=== PATIENT | female | born 1980 | race Caucasian/White ===

== ENCOUNTER 2016-11-27 21:44 | Emergency (ER) | payer OTHER ==
--- NOTE | 2016-11-27 22:04 | ERPHSYRPT ---
- History of Present Illness Time Seen by Provider: 11/27/16 21:58 Source: patient Exam Limitations: no limitations Patient Subjective Stated Complaint: describes malaise-type pains with muscle spasms and heaviness - states migraines - states that she has trouble with pituitary swelling and had recent adjustment of migraine et fibromyalgia medications - states that she has her usual pain behind the nose and soft palate of the mouth - reports with some photophobia and nausea Triage Nursing Assessment: ambulatory to treatment area - limping gait - moves all extremities with equal rigidity. alert/oriented - flat affect. skin pwd - no rash/injury appreciated Physician History: pt is 36 year old female with hx chronic headaches and fibromyalgia and having exacerbation of usual symptoms similar to previous episodes, no trauma , no fever, no sinus symptoms, no blood thinners or dyscrasias, has seen neuro and had full w/u per pt. ; also vomiting ; abd is nontender; no abd pain. Timing/Duration: today Quality: throbbing Head Pain Location: frontal Severity of Pain-Max: moderate Severity of Pain-Current: moderate Recent Head Trauma: no recent headache/trauma, frequent headaches, chronic headaches Modifying Factors: Improves With: exposure to light, noise Associated Symptoms: nausea/vomiting, sensitive to light, other (muscle spasms as often occur with her fibro and same as usual episodes) Previous symptoms: same symptoms as today, recently seen, recently treated Allergies/Adverse Reactions: nut - unspecified Allergy (Severe, Verified 11/27/16 21:48) Swelling of Tongue and Lips hydromorphone HCl [From Dilaudid] Allergy (Verified 11/27/16 21:48) Shortness of Breath Latex, Natural Rubber Allergy (Verified 11/27/16 21:48) Penicillins Allergy (Verified 11/27/16 21:48) peanuts Allergy (Severe, Uncoded 11/27/16 21:48) Swelling of Tongue and Lips Tongue and throat swells and difficulty breathing Home Medications: Citalopram Hydrobromide [Citalopram HBr] 40 mg PO DAILY 01/08/16 [History] Diphenhydramine HCl 25 mg PO Q6HPRN PRN 01/08/16 [History] Pregabalin [Lyrica 100Mg] 100 mg PO TID 01/08/16 [History] Tizanidine HCl 2 mg PO TID 01/08/16 [History] Melatonin/Pyridoxine [Melatonin 5 mg Tablet] 1 each PO HS PRN 04/02/16 [History] Amitriptyline HCl 25 mg [Elavil 25 mg] 25 mg PO DAILY 11/27/16 [History] Divalproex Sodium [Divalproex Sodium ER] 1,000 mg PO DAILY 11/27/16 [History] Magnesium Oxide 400 mg [Mag-Ox 400] 400 mg PO DAILY 11/27/16 [History] Prednisone 20 mg [Deltasone 20 mg] 20 mg PO DAILY 11/27/16 [History] Rizatriptan Benzoate [Rizatriptan] 10 mg PO DAILY 11/27/16 [History] Hx Tetanus, Diphtheria Vaccination/Date Given: No Hx Influenza Vaccination/Date Given: No Hx Pneumococcal Vaccination/Date Given: No Immunizations Up to Date: Yes - Review of Systems Constitutional: No Fever, No Chills Eyes: No Symptoms Ears, Nose, & Throat: No Symptoms Respiratory: No Cough, No Dyspnea Cardiac: No Chest Pain, No Edema, No Syncope Abdominal/Gastrointestinal: Nausea, Vomiting, No Abdominal Pain, No Diarrhea Genitourinary Symptoms: No Dysuria Musculoskeletal: Other (muscle spasms as usual with her fibro), No Back Pain, No Neck Pain Skin: No Rash Neurological: Headache, No Dizziness, No Focal Weakness, No Sensory Changes Psychological: No Symptoms Endocrine: No Symptoms All Other Systems: Reviewed and Negative - Past Medical History Pertinent Past Medical History: Yes Neurological History: Migraines ENT History: No Pertinent History Cardiac History: Other Respiratory History: Asthma Endocrine Medical History: No Pertinent History Musculoskeletal History: Fibromyalgia GI Medical History: No Pertinent History History: No Pertinent History Psycho-Social History: No Pertinent History, Anxiety, Depression, Panic Disorder Female Reproductive Disorders: Abnormal Uterine Bleeding, Fibroids, Menstrual Problems Other Medical History: "possible heart attack after of child" - Past Surgical History Past Surgical History: Yes Neuro Surgical History: No Pertinent History Cardiac: No Pertinent History Respiratory: No Pertinent History Gastrointestinal: No Pertinent History Genitourinary: No Pertinent History Musculoskeletal: No Pertinent History Female Surgical History: Section, Tubal Ligation Other Surgical History: x 2 and tubal ligation. pt and family state difficult to awaken from general anesthesia - Social History Smoking Status: Current every day smoker How long have you smoked: 10 years Exposure to second hand smoke: No Drug Use: none Patient Lives Alone: No - Female History Hx Last Menstrual Period: hyst Hx Now: No - Nursing Vital Signs Nursing Vital Signs: Initial Vital Signs Temperature 98.2 F Temperature Source Oral Pulse Rate 68 Respiratory Rate 16 Blood Pressure [Right Arm] 120/76 Pain Intensity 8 - Physical Exam General Appearance: no apparent distress Eye Exam: PERRL/EOMI Ears, Nose, Throat Exam: normal ENT inspection, moist mucous membranes Neck Exam: normal inspection, supple, full range of motion, No meningismus Respiratory Exam: normal breath sounds, lungs clear Cardiovascular Exam: regular rate/rhythm, normal heart sounds Gastrointestinal/Abdominal Exam: soft, No tenderness, No distention Back Exam: normal inspection, normal range of motion Mental Status Exam: alert, 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, 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: normal speech, PERRL, No facial droop Coordination/Gait Exam: normal gait, normal cerebellar function Motor/Sensory Exam: no motor deficit, no sensory deficit, no pronator drift DTR Exam: bicep (R): 2+, bicep (L): 2+, tricep (R): 2+, tricep (L): 2+, knee (R) : 2+, knee (L): 2+, ankle (R): 2+, ankle (L): 2+ Skin Exam: normal color, warm, dry, No rash SpO2 Interpretation: normal SpO2: 100 Oxygen Delivery: Room Air - Course Nursing assessment & vital signs reviewed: Yes Ordered Tests: Active Orders 24 hr Category Date Time Status IV Insertion STAT Care 11/27/16 22:05 Active Pulse Oximetry (ED) STAT Care 11/27/16 22:05 Active Medication Summary Generic Name Dose Route Start Last Admin Trade Name Freq PRN Reason Stop Dose Admin Sodium Chloride 1,000 mls @ 999 mls/hr 11/27/16 23:31 11/27/16 23:36 Sodium Chloride 0.9% 1000 Ml IV 11/28/16 00:31 999 mls/hr .Q1H1M STA Administration Discontinued Medications Generic Name Dose Route Start Last Admin Trade Name Freq PRN Reason Stop Dose Admin Diphenhydramine HCl 25 mg 11/27/16 22:05 11/27/16 22:35 Benadryl 50 Mg/Ml IV 11/27/16 22:06 25 mg STAT ONE Administration Diphenhydramine HCl Confirm 11/27/16 22:18 Benadryl 50 Mg/Ml Administered 11/27/16 22:19 Dose 50 mg .ROUTE .STK-MED ONE Sodium Chloride 1,000 mls @ 999 mls/hr 11/27/16 22:05 11/27/16 22:31 Sodium Chloride 0.9% 1000 Ml IV 11/27/16 23:05 999 mls/hr .Q1H1M STA Administration Sodium Chloride Confirm 11/27/16 22:18 Sodium Chloride 0.9% 1000 Ml Administered 11/27/16 22:19 Dose 1,000 mls @ ud .ROUTE .STK-MED ONE Sodium Chloride Confirm 11/27/16 23:34 Sodium Chloride 0.9% 1000 Ml Administered 11/27/16 23:35 Dose 1,000 mls @ ud .ROUTE .STK-MED ONE Ketorolac Tromethamine 30 mg 11/27/16 22:05 11/27/16 22:35 Toradol 30 Mg Injection IV 11/27/16 22:06 30 mg STAT ONE Administration Ketorolac Tromethamine Confirm 11/27/16 22:18 Toradol 30 Mg Injection Administered 11/27/16 22:19 Dose 30 mg .ROUTE .STK-MED ONE Orphenadrine Citrate 60 mg 11/27/16 22:10 11/27/16 22:34 Norflex 60 Mg/2 Ml IM 11/27/16 22:11 60 mg STAT ONE Administration Orphenadrine Citrate Confirm 11/27/16 22:18 Norflex 60 Mg/2 Ml Administered 11/27/16 22:19 Dose 60 mg .ROUTE .STK-MED ONE Oxycodone/Acetaminophen 1 tab 11/27/16 23:30 11/27/16 23:36 Oxycodone-Acetaminophen 10-325 PO 11/27/16 23:31 1 tab STAT STA Administration Oxycodone/Acetaminophen Confirm 11/27/16 23:34 Oxycodone-Acetaminophen 10-325 Administered 11/27/16 23:35 Dose 1 tab .ROUTE .STK-MED ONE Promethazine HCl 50 mg 11/27/16 22:05 11/27/16 22:35 Phenergan 25 Mg Inj IM 11/27/16 22:06 50 mg STAT ONE Administration Promethazine HCl Confirm 11/27/16 22:17 Phenergan 25 Mg Inj Administered 11/27/16 22:18 Dose 25 mg .ROUTE .STK-MED ONE Promethazine HCl Confirm 11/27/16 22:20 Phenergan 25 Mg Inj Administered 11/27/16 22:21 Dose 25 mg .ROUTE .STK-MED ONE Tizanidine HCl 4 mg 11/27/16 22:10 11/27/16 22:38 Zanaflex 4 Mg PO 11/27/16 22:11 4 mg STAT ONE Administration - Progress Progress: improved, re-examined Air Movement: good Progress Note: 11/27/16 23:29 headache only some improved , has responded to percocet before , so will try this 11/28/16 00:12 headache improved after treatment pt aware of need to f/u PCP for elevated prolactin and that no tests performed due to ongoing workup and being incare for these conditions which are proceeding as their usual course , but that undetected problems could still be evolving; pt is comfortable for DC without further w/u in ER at this time and prefers that to further w/u in ER. Blood Culture(s) Obtained: No Antibiotics given: No Counseled pt/family regarding: diagnosis, need for follow-up - Departure Time of Disposition: 00:15 Departure Disposition: Home Clinical Impression: Chronic headache disorder, Prolactin increased, Fibromyalgia Condition: Good Critical Care Time: No Instructions: Headache Additional Instructions: followup with your DrTrish for elevated prolactin and to renew muscle relaxer and neurologist for headaches and to continue your workup and treatments return meantime if not improving or further concerns.
[2016-11-27] MEDS ORDERED: Phenergan 25 MG INJ IM ONE (22:05)
[2016-11-27] MEDS ORDERED: BENADRYL 50 MG/ML IV ONE (22:05)
[2016-11-27] MEDS ORDERED: Sodium Chloride 0.9% 1000 ML 1,000 ML IV STA ×2 (22:05→23:31)
[2016-11-27] MEDS ORDERED: TORAdol 30 mg Injection IV ONE (22:05)
[2016-11-27] MEDS ORDERED: Zanaflex 4 MG PO ONE (22:10)
[2016-11-27] MEDS ORDERED: Norflex 60 MG/2 ML IM ONE (22:10)
[2016-11-27] MEDS ORDERED: Phenergan 25 MG INJ ONE ×2 (22:17→22:20)
[2016-11-27] MEDS ORDERED: Sodium Chloride 0.9% 1000 ML 1,000 ML ONE ×2 (22:18→23:34)
[2016-11-27] MEDS ORDERED: TORAdol 30 mg Injection ONE (22:18)
[2016-11-27] MEDS ORDERED: Norflex 60 MG/2 ML ONE (22:18)
[2016-11-27] MEDS ORDERED: BENADRYL 50 MG/ML ONE (22:18)
[2016-11-27] MEDS ORDERED: OXYCODONE-ACETAMINOPHEN 10-325 PO STA (23:30)
[2016-11-27] MEDS ORDERED: OXYCODONE-ACETAMINOPHEN 10-325 ONE (23:34)
[2016-11-28] MEDS ORDERED: OXYCODONE-ACETAMINOPHEN 10-325 PO STA (00:19)
[2016-11-28] MEDS ORDERED: Zanaflex 4 MG PO ONE (00:20)
[2016-11-28] MEDS ORDERED: OXYCODONE-ACETAMINOPHEN 10-325 ONE (00:26)
[2016-11-28 00:49] VITALS: BP 115/63; PULSE 74; O2SAT 99
== END 2016-11-28 00:50 | disposition home or self-care (01) ==
LOC: ED 21:44
DX: R51 Headache (principal); E22.1 Hyperprolactinemia; M79.7 Fibromyalgia; H53.149 Visual discomfort, unspecified; R11.2 Nausea with vomiting, unspecified
CPT/HCPCS: 36000; 96360; 96361; 96372; 96374; 96375; 99284; J1200; J1885; J2360; J2550; A9270-GY

== ENCOUNTER 2016-12-31 17:16 | Emergency (ER) | payer OTHER ==
[2016-12-31 17:48] VITALS: O2SAT 100
--- NOTE | 2016-12-31 18:23 | ERPHSYRPT ---
- History of Present Illness Time Seen by Provider: 12/31/16 18:18 Historian: patient Exam Limitations: no limitations Patient Subjective Stated Complaint: pt states when she woke up this morning she noticed right lower abdominal pain. states pain has became worse throughout the day. Triage Nursing Assessment: pt pink, warm, dry. abdomen soft tender in right lower quad. pt afebrile. Physician History: The patient is a 36-year-old female complaining of increasing pain in her right lower quadrant that began this morning. She is nauseated but does not have any vomiting at this time. A bowel movement today did not help with the pain. She has a past medical history of a hysterectomy. She's experienced chills and fever today. Her past medical history is significant for uterine fibroid, fibromyalgia, chronic headaches, and a recent pituitary "problem". Yesterday she had a MRI of her head contrast. Timing/Duration: today Activities at Onset: none Quality: sharpness Abdominal Pain Onset Location: RLQ Pain Radiation: no radiation Severity of Pain-Max: severe Severity of Pain-Current: severe Modifying Factors: Improves With: nothing Associated Symptoms: denies symptoms Previous symptoms: no prior history Allergies/Adverse Reactions: nut - unspecified Allergy (Severe, Verified 12/31/16 17:48) Swelling of Tongue and Lips hydromorphone HCl [From Dilaudid] Allergy (Verified 12/31/16 17:48) Shortness of Breath Latex, Natural Rubber Allergy (Verified 12/31/16 17:48) Penicillins Allergy (Verified 12/31/16 17:48) peanuts Allergy (Severe, Uncoded 12/31/16 17:48) Swelling of Tongue and Lips Tongue and throat swells and difficulty breathing Home Medications: Amitriptyline HCl 25 mg [Elavil 25 mg] 50 mg PO HS 12/31/16 [History] Cholecalciferol (Vitamin D3) [Vitamin D3] 1.2 mg PO WEEKLY 12/31/16 [History] Cyanocobalamin 100 Mcg [Vitamin B-12 100 Mcg] 100 mcg PO WEEKLY 12/31/16 [ History] Divalproex Sodium [Divalproex Sodium ER] 500 mg PO BID 12/31/16 [History] Hydrocortisone 10 mg PO BID 12/31/16 [History] Magnesium Oxide 400 mg [Mag-Ox 400] 400 mg PO DAILY 12/31/16 [History] Hx Tetanus, Diphtheria Vaccination/Date Given: Yes (up to date) Hx Influenza Vaccination/Date Given: No Hx Pneumococcal Vaccination/Date Given: No Immunizations Up to Date: Yes - Review of Systems Constitutional: Fever, Chills Eyes: No Symptoms Ears, Nose, & Throat: No Symptoms Respiratory: No Cough, No Dyspnea Cardiac: No Chest Pain, No Edema, No Syncope Abdominal/Gastrointestinal: Abdominal Pain, Nausea, No Vomiting, No Diarrhea Genitourinary Symptoms: No Dysuria Musculoskeletal: No Back Pain, No Neck Pain Skin: No Rash Neurological: No Dizziness, No Focal Weakness, No Sensory Changes Psychological: No Symptoms Endocrine: No Symptoms Hematologic/Lymphatic: No Symptoms Immunological/Allergic: No Symptoms All Other Systems: Reviewed and Negative - Past Medical History Pertinent Past Medical History: Yes Neurological History: Migraines ENT History: No Pertinent History Cardiac History: Other Respiratory History: Asthma Endocrine Medical History: No Pertinent History Musculoskeletal History: Fibromyalgia GI Medical History: No Pertinent History History: No Pertinent History Psycho-Social History: Depression Female Reproductive Disorders: Fibroids Other Medical History: "possible heart attack after of child" - Past Surgical History Past Surgical History: Yes Neuro Surgical History: No Pertinent History Cardiac: No Pertinent History Respiratory: No Pertinent History Gastrointestinal: No Pertinent History Genitourinary: No Pertinent History Musculoskeletal: No Pertinent History Female Surgical History: Hysterectomy, Section Other Surgical History: x 2 and tubal ligation. pt and family state difficult to awaken from general anesthesia - Social History Smoking Status: Current every day smoker How long have you smoked: 13 Exposure to second hand smoke: Yes Drug Use: none Patient Lives Alone: No - Female History Hx Last Menstrual Period: hyster Hx Now: No - Nursing Vital Signs Nursing Vital Signs: Initial Vital Signs Temperature 98.4 F Temperature Source Oral Pulse Rate 95 Respiratory Rate 18 Blood Pressure [Right Arm] 107/81 Pain Intensity 7 - Physical Exam General Appearance: mild distress Eye Exam: PERRL/EOMI, eyes nml inspection Ears, Nose, Throat Exam: normal ENT inspection, pharynx normal, moist mucous membranes Neck Exam: normal inspection, non-tender, supple, full range of motion Respiratory Exam: normal breath sounds, lungs clear, No respiratory distress Cardiovascular Exam: regular rate/rhythm, normal heart sounds Gastrointestinal/Abdomen Exam: soft, tenderness (ERLQ), guarding, rebound, No mass Pelvic Exam: not done Rectal Exam: not done Back Exam: normal inspection, normal range of motion, No CVA tenderness, No vertebral tenderness Extremity Exam: normal inspection, normal range of motion, pelvis stable Neurologic Exam: alert, 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, cooperative, normal mood/affect, nml cerebellar function, sensation nml, No motor deficits Skin Exam: normal color, warm, dry SpO2 Interpretation: normal SpO2: 100 Oxygen Delivery: Room Air - CT Exams Abdomen/Pelvis CT Interpretation: Tele-radiologist Report, Normal Appendix, No appendicitis, Other (right ovarian cyst per Dr Tran) Ordered Tests: Active Orders 24 hr Category Date Time Status IV Insertion STAT Care 12/31/16 18:04 Active ABDOMEN AND PELVIS W/0 CONTRAS [CT] Stat Exams 12/31/16 18:27 Taken CBC W DIFF Stat Lab 12/31/16 18:31 Completed CMP Stat Lab 12/31/16 18:31 Completed LIPASE Stat Lab 12/31/16 18:31 Completed Lactic Acid Urgent Lab 12/31/16 18:52 Completed UA Stat Lab 12/31/16 18:31 Completed Medication Summary Generic Name Dose Route Start Last Admin Trade Name Freq PRN Reason Stop Dose Admin Sodium Chloride 1,000 mls @ 100 mls/hr 12/31/16 18:30 12/31/16 18:34 Sodium Chloride 0.9% 1000 Ml IV 01/30/17 18:29 100 mls/hr .Q10H TRACEE Administration Discontinued Medications Generic Name Dose Route Start Last Admin Trade Name Freq PRN Reason Stop Dose Admin Ketorolac Tromethamine 30 mg 12/31/16 18:27 12/31/16 18:34 Toradol 30 Mg Injection IV 12/31/16 18:28 30 mg STAT ONE Administration Ketorolac Tromethamine Confirm 12/31/16 18:31 Toradol 30 Mg Injection Administered 12/31/16 18:32 Dose 30 mg .ROUTE .STK-MED ONE Ondansetron HCl 4 mg 12/31/16 18:27 12/31/16 18:34 Zofran 4 Mg/2 Ml Vial IV 12/31/16 18:28 4 mg STAT ONE Administration Ondansetron HCl Confirm 12/31/16 18:31 Zofran 4 Mg/2 Ml Vial Administered 12/31/16 18:32 Dose 4 mg .ROUTE .STK-MED ONE Lab/Rad Data: Laboratory Result Diagrams 12/31/16 18:31 12/31/16 18:31 Laboratory Results 12/31/16 12/31/16 12/31/16 Range/Units 18:52 18:31 18:31 WBC 9.4 (4.0-10.5) K/mm3 RBC 4.94 (4.1-5.4) M/mm3 Hgb 15.4 (12.0-16.0) gm/dl Hct 46.2 (35-47) % MCV 93.5 (78-100) fl MCH 31.2 (26-32) pg MCHC 33.3 (32-36) g/dl RDW 14.2 H (11.5-14.0) % Plt Count 264 (150-450) K/mm3 MPV 10.0 H (6-9.5) fl Gran % 67.8 H (36.0-66.0) % Lymphocytes % 20.8 L (24.0-44.0) % Monocytes % 5.3 (0.0-12.0) % Eosinophils % 5.8 H (0.00-5.0) % Basophils % 0.3 (0.0-0.4) % Basophils # 0.03 (0-0.4) Sodium 142 (136-145) mEq/L Potassium 3.6 (3.5-5.1) mEq/L Chloride 104 (98-107) mEq/L Carbon Dioxide 26.7 (21-32) mEq/L Anion Gap 14.4 (5-15) MEQ/L BUN 9 (9-20) mg/dL Creatinine 0.82 (0.55-1.30) mg/dl Estimated GFR > 60 ML/MIN Glucose 104 (70-110) MG/DL Lactic Acid 1.5 (0.4-2.0) Calcium 9.0 (8.5-10.1) mg/dL Total Bilirubin 0.3 (0.2-1.0) mg/dL AST 17 (15-37) U/L ALT 12 (12-78) U/L Alkaline Phosphatase 53 (46-116) U/L Serum Total Protein 7.5 (6.4-8.2) gm/dL Albumin 4.3 (3.4-5.0) g/dL Lipase 127 (73-393) U/L Ur Collection Type Urine Color (YELLOW) Urine Appearance (CLEAR) Urine pH (5-6) Ur Specific [place] (1.005-1.025) Urine Protein (Negative) Urine Glucose (UA) (NEGATIVE) mg/dL Urine Ketones (NEGATIVE) Urine Nitrite (NEGATIVE) Urine Bilirubin (NEGATIVE) Urine Urobilinogen (0-1) mg/dL Urine WBC (Auto) (NEGATIVE) Urine RBC (Auto) (0-5) Lemuel/ul Specimen Received 12/31/16 Range/Units 18:31 WBC (4.0-10.5) K/mm3 RBC (4.1-5.4) M/mm3 Hgb (12.0-16.0) gm/dl Hct (35-47) % MCV (78-100) fl MCH (26-32) pg MCHC (32-36) g/dl RDW (11.5-14.0) % Plt Count (150-450) K/mm3 MPV (6-9.5) fl Gran % (36.0-66.0) % Lymphocytes % (24.0-44.0) % Monocytes % (0.0-12.0) % Eosinophils % (0.00-5.0) % Basophils % (0.0-0.4) % Basophils # (0-0.4) Sodium (136-145) mEq/L Potassium (3.5-5.1) mEq/L Chloride (98-107) mEq/L Carbon Dioxide (21-32) mEq/L Anion Gap (5-15) MEQ/L BUN (9-20) mg/dL Creatinine (0.55-1.30) mg/dl Estimated GFR ML/MIN Glucose (70-110) MG/DL Lactic Acid (0.4-2.0) Calcium (8.5-10.1) mg/dL Total Bilirubin (0.2-1.0) mg/dL AST (15-37) U/L ALT (12-78) U/L Alkaline Phosphatase (46-116) U/L Serum Total Protein (6.4-8.2) gm/dL Albumin (3.4-5.0) g/dL Lipase (73-393) U/L Ur Collection Type CLEAN CATCH Urine Color YELLOW (YELLOW) Urine Appearance CLEAR (CLEAR) Urine pH 7.0 (5-6) Ur Specific [place] 1.020 (1.005-1.025) Urine Protein NEGATIVE (Negative) Urine Glucose (UA) NEGATIVE (NEGATIVE) mg/dL Urine Ketones NEGATIVE (NEGATIVE) Urine Nitrite NEGATIVE (NEGATIVE) Urine Bilirubin NEGATIVE (NEGATIVE) Urine Urobilinogen 0.2 (0-1) mg/dL Urine WBC (Auto) NEGATIVE (NEGATIVE) Urine RBC (Auto) NEGATIVE (0-5) Lemuel/ul Specimen Received [id number] - Progress Progress: unchanged Progress Note: 12/31/16 19:06 Patient condition was discussed with Dr. Zaragoza [place] [address] Zaragoza accepts care. Counseled pt/family regarding: lab results, diagnosis, rad results - Departure Time of Disposition: 19:15 Departure Disposition: Home Clinical Impression: Ovarian cyst Condition: Stable Critical Care Time: No Additional Instructions: Your abdominal pain was caused by a right sided ovarian cyst. Your given Toradol 60 mg by IV in the emergency room. You have a prescription for Tylenol No. 3 with codeine. Take one tablet every 4 hours as needed for pain. Follow- up as needed. Prescriptions: Acetaminophen with Codeine [Tylenol with Codeine #3 Tablet] 1 each PO Q4H PRN PRN #10 tablet PRN Reason: Pain
[2016-12-31] MEDS ORDERED: TORAdol 30 mg Injection IV ONE (18:27)
[2016-12-31] MEDS ORDERED: Zofran 4 MG/2 ML VIAL IV ONE (18:27)
[2016-12-31] MEDS ORDERED: Sodium Chloride 0.9% 1000 ML 1,000 ML IV SCH (18:30)
[2016-12-31] MEDS ORDERED: Sodium Chloride 0.9% 1000 ML 1,000 ML ONE (18:31)
[2016-12-31] MEDS ORDERED: TORAdol 30 mg Injection ONE (18:31)
[2016-12-31] MEDS ORDERED: Zofran 4 MG/2 ML VIAL ONE (18:31)
[2016-12-31 18:35] LABS: BASOPHIL % 0.3 % (0.0-0.4); Eosinophil % 5.8 % (0.00-5.0); Granulocytes % 67.8 % (36.0-66.0); Lymphocytes % 20.8 % (24.0-44.0); Mean Cell Volume 93.5 fl (78-100); Mean Corpuscular Hemoglobin 31.2 pg (26-32); Monocytes % 5.3 % (0.0-12.0); Platelet Count 264 K/mm3 (150-450); Red Blood Count 4.94 M/mm3 (4.1-5.4); Red Cell Distribution Width 14.2 % (11.5-14.0); White Blood Count 9.4 K/mm3 (4.0-10.5)
[2016-12-31 18:37] LABS: Collection Type CLEAN CATCH
[2016-12-31 18:38] LABS: COMPLETE URINE MICROSCOPIC? NO
[2016-12-31 18:43] LABS: ALBUMIN 4.3 g/dL (3.4-5.0); ALKALINE PHOSPHATASE 53 U/L (46-116); ANION GAP 14.4 MEQ/L (5-15); BILIRUBIN,TOTAL 0.3 mg/dL (0.2-1.0); BLOOD UREA NITROGEN 9 mg/dL (9-20); CHLORIDE 104 mEq/L (98-107); Carbon Dioxide 26.7 mEq/L (21-32); Glucose 104 MG/DL (70-110); LIPASE 127 U/L (73-393); Potassium 3.6 mEq/L (3.5-5.1); SGOT/AST 17 U/L (15-37); SGPT/ALT 12 U/L (12-78); SODIUM 142 mEq/L (136-145); Total Protein 7.5 gm/dL (6.4-8.2)
[2016-12-31 19:41] VITALS: BP 127/70; PULSE 70
--- NOTE | 2016-12-31 22:50 | XRAY ---
Indication: Right lower quadrant pain. Nausea. Multiple contiguous axial images obtained through the abdomen and pelvis without contrast as ordered. Comparison: None Lung bases are clear. Heart is not enlarged. Noncontrasted stomach and bowel loops appear nonobstructed. Appendix not seen. In the right adnexa, there is a 4.2 cm cystic mass presumed ovary. No free fluid/air. Gallbladder contracted without gallstones. Remaining liver, pancreas, spleen, adrenal glands, kidneys, ureters, bladder, uterus, and aorta appear unremarkable for noncontrast exam. Osseous structures intact. Impression: 4.2 cm right ovary cyst. Pelvic sonogram may yield further information if clinically warranted. Comment: Preliminary interpretation was made by [facility]. No discrepancy. CTDI 9.17
== END 2016-12-31 19:41 | disposition home or self-care (01) ==
LOC: ED 17:16
DX: N83.209 Unspecified ovarian cyst, unspecified side (principal); R10.31 Right lower quadrant pain; R50.9 Fever, unspecified; R11.0 Nausea
CPT/HCPCS: 36000; 36415; 74176; 80053; 81002; 83605; 83690; 85025; 96360; 96374; 96375; 99284; J1885; J2405

== ENCOUNTER 2017-04-25 20:02 | Emergency (ER) | payer OTHER ==
[2017-04-25] MEDS ORDERED: KEFLEX 500 MG PO ONE (20:29)
[2017-04-25] MEDS ORDERED: BACTRIM DS TABLET PO ONE ×2 (20:30→20:34)
[2017-04-25] MEDS ORDERED: Bactroban OINTMENT TP ONE (20:31)
[2017-04-25] MEDS ORDERED: KEFLEX 500 MG ONE (20:34)
--- NOTE | 2017-04-25 21:07 | ERPHSYRPT ---
- History of Present Illness Source: patient, family () Exam Limitations: no limitations Patient Subjective Stated Complaint: pt states she woke up with a sore on her lt leg a few days ago and it has been getting bigger and more painful Triage Nursing Assessment: pt alert and oriented, asnwers questions approp. pt ambulatory with limping gait noted. respirations nonlabored withlungs cta. skin pink warm and dry. open area with cornelius wound bed approx 1.5 x 2 cm with redness and warmth surrounding. Physician History: Patient with increasing lesion lateral aspect lower left leg over past 6 or 7 days increasingly large area of irritation/inflammation from unknown etiology. She has been cleaning it daily with alcohol without any improvement to the ER at this time with no other medical treatment for such. Patient has history of pituitary disease is on steroids and other associated medications. No previous history of such. No fever or chills. No neurovascular musculature changes in the lower extremity below the lesion. Timing/Duration: today, worse Quality: burning, itchy Severity: moderate Location: extremities ( ABOVE) Possible Causes: no cause identified Associated Symptoms: change in skin texture Allergies/Adverse Reactions: nut - unspecified Allergy (Severe, Verified 04/25/17 21:06) Swelling of Tongue and Lips hydromorphone HCl [From Dilaudid] Allergy (Verified 04/25/17 21:06) Shortness of Breath Latex, Natural Rubber Allergy (Verified 04/25/17 21:06) Penicillins Allergy (Verified 04/25/17 21:06) peanuts Allergy (Severe, Uncoded 04/25/17 21:06) Swelling of Tongue and Lips Tongue and throat swells and difficulty breathing Home Medications: Amitriptyline HCl 25 mg [Elavil 25 mg] 50 mg PO HS 12/31/16 [History] Cholecalciferol (Vitamin D3) [Vitamin D3] 1.2 mg PO WEEKLY 12/31/16 [History] Cyanocobalamin 100 Mcg [Vitamin B-12 100 Mcg] 100 mcg PO WEEKLY 12/31/16 [ History] Divalproex Sodium [Divalproex Sodium ER] 500 mg PO BID 12/31/16 [History] Hydrocortisone 10 mg PO BID 12/31/16 [History] Magnesium Oxide 400 mg [Mag-Ox 400] 400 mg PO DAILY 12/31/16 [History] Hx Tetanus, Diphtheria Vaccination/Date Given: Yes (up to date) Hx Influenza Vaccination/Date Given: No Hx Pneumococcal Vaccination/Date Given: No Immunizations Up to Date: Yes - Review of Systems Constitutional: No Symptoms Eyes: No Symptoms Ears, Nose, & Throat: No Symptoms Respiratory: No Symptoms Cardiac: No Symptoms Abdominal/Gastrointestinal: No Symptoms Genitourinary Symptoms: No Symptoms Musculoskeletal: No Symptoms Skin: Induration, Other (HE HAS NOTED HISTORY OF PRESENT ILLNESS) Psychological: No Symptoms Endocrine: No Symptoms - Past Medical History Pertinent Past Medical History: Yes Neurological History: Migraines ENT History: No Pertinent History Cardiac History: Other Respiratory History: Asthma Endocrine Medical History: Other ( NOTED IN HISTORY OF PRESENT ILLNESS FOR PITUITARY DISEASE) Musculoskeletal History: Fibromyalgia GI Medical History: No Pertinent History History: No Pertinent History Psycho-Social History: Depression Female Reproductive Disorders: Fibroids Other Medical History: "possible heart attack after of child". osteopenia - Past Surgical History Past Surgical History: Yes Neuro Surgical History: No Pertinent History Cardiac: No Pertinent History Respiratory: No Pertinent History Gastrointestinal: No Pertinent History Genitourinary: No Pertinent History Musculoskeletal: No Pertinent History Female Surgical History: Hysterectomy, Section Other Surgical History: x 2 and tubal ligation. pt and family state difficult to awaken from general anesthesia - Social History Smoking Status: Current every day smoker How long have you smoked: 13 Exposure to second hand smoke: Yes Drug Use: none Patient Lives Alone: No - Female History Hx Last Menstrual Period: hyster Hx Now: No - Nursing Vital Signs Nursing Vital Signs: Initial Vital Signs Temperature 99.1 F 04/25/17 20:11 Pulse Rate 84 04/25/17 20:11 Respiratory Rate 16 04/25/17 20:11 Blood Pressure 123/64 04/25/17 20:11 O2 Sat by Pulse Oximetry 99 04/25/17 20:11 Pain Scale Pain Intensity 2 - Physical Exam General Appearance: mild distress Eye Exam: PERRL/EOMI Ears, Nose, Throat Exam: normal ENT inspection Neck Exam: normal inspection Respiratory Exam: normal breath sounds, accessory muscle use Cardiovascular Exam: regular rate/rhythm, normal heart sounds Gastrointestinal/Abdomen Exam: soft, normal bowel sounds, No tenderness, No distention, No mass, No guarding, No rebound Pelvic Exam: not done Rectal Exam: deferred Back Exam: normal inspection Extremity Exam: other (SEE SKIN EXAM), No calf tenderness, No deformities, No lacerations Neurologic Exam: alert, 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, cooperative Skin Exam: other (1.5 X 2 CM INDURATED SLIGHTLY ULCERATED AREA WITH CIRCUMFERTIAL RIM OF ERYTHEMA LATERAL ASPECT MID LATERAL LEFT LOWER LEG MINIMAL DRAINAGE SENT FOR CULTURE) SpO2 Interpretation: normal SpO2: 99 Oxygen Delivery: Room Air Ordered Tests: Active Orders 24 hr Category Date Time Status Wound Care STAT Care 04/25/17 20:32 Active CULTURE,WOUND Stat Lab 04/25/17 20:35 Received Medication Summary Discontinued Medications Generic Name Dose Route Start Last Admin Trade Name Freq PRN Reason Stop Dose Admin Cephalexin HCl 500 mg 04/25/17 20:29 04/25/17 20:35 Keflex 500 Mg PO 04/25/17 20:30 500 mg STAT ONE Administration Cephalexin HCl Confirm 04/25/17 20:34 Keflex 500 Mg Administered 04/25/17 20:35 Dose 500 mg .ROUTE .STK-MED ONE Mupirocin 22 gm 04/25/17 20:31 04/25/17 20:48 Bactroban Ointment TP 04/25/17 20:32 22 gm STAT ONE Administration Trimethoprim/Sulfamethoxazole 1 tab 04/25/17 20:30 04/25/17 20:35 Bactrim Ds Tablet PO 04/25/17 20:31 1 tab STAT ONE Administration Trimethoprim/Sulfamethoxazole Confirm 04/25/17 20:34 Bactrim Ds Tablet Administered 04/25/17 20:35 Dose 1 tab PO .STK-MED ONE - Progress Progress: unchanged Progress Note: 04/26/17 03:14Skin lesion lateral aspect mid left lower leg. With Bactroban and Keflex and Bactrim as doxycycline unable to use to the patient's magnesium mentation. Patient referred to medical provider for further follow-up and possible wound management referral, she discharge diagnosis and instructions. Counseled pt/family regarding: diagnosis, need for follow-up - Departure Time of Disposition: 21:00 Departure Disposition: Home Clinical Impression: Cellulitis of left lower leg Condition: Stable Critical Care Time: No Referrals: MARK NICOLE [Primary Care Provider] - 04/27/17 Instructions: Cellulitis -- Adult Additional Instructions: Apply anabolic ointment to the area with first Band-Aid 3 times a day after gently clean with soap and water and allowing to air/pat dry for 10 minutes. Start antibiotic prescriptions in the morning for important see Dr. Kyle as soon as possible this week for follow-up and possible referral to wound clinic. Continue your other medications. Prescriptions: Mupirocin [Bactroban OINTMENT] 22 gm TP TID #1 tube Sulfamethoxazole/Trimethoprim [Bactrim Ds Tablet] 1 each PO BID #20 tablet
[2017-04-25 21:18] VITALS: BP 116/56; PULSE 76
[2017-04-26 02:08] VITALS: O2SAT 99
== END 2017-04-25 21:18 | disposition home or self-care (01) ==
LOC: ED 20:02
DX: L03.116 Cellulitis of left lower limb (principal); Z79.899 Other long term (current) drug therapy
CPT/HCPCS: 87070; 99283; A9270-GY

== ENCOUNTER 2017-06-07 22:03 | Emergency (ER) | payer OTHER ==
[2017-06-07 23:00] VITALS: O2SAT 98
[2017-06-07] MEDS ORDERED: TORAdol 30 mg Injection IM ONE (23:08)
[2017-06-07] MEDS ORDERED: Phenergan 25 MG INJ IM ONE (23:08)
[2017-06-07] MEDS ORDERED: TORAdol 30 mg Injection ONE (23:16)
[2017-06-07] MEDS ORDERED: Phenergan 25 MG INJ ONE (23:16)
--- NOTE | 2017-06-07 23:17 | ERPHSYRPT ---
- History of Present Illness Time Seen by Provider: 06/07/17 23:03 Source: patient Exam Limitations: no limitations Patient Subjective Stated Complaint: Pt C/O migraine headache x 7 days. Pain has gradually increased over the last few days. Sts today having vomiting, unable to keep anything down. Lights and noise make pain worse. Denies diarrhea. Also sts muscle spasms that occur frequently for her. Triage Nursing Assessment: Pt alert, oriented, answers all questions appropriately. Skin pink, warm, dry. Resps non-labored. Pt ambulatory to tx room holding head. Steady gait noted. Pupils PERRLA, nystagmus noted with pupil assessment. 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 PT STATES SHE CAN TAKE TORADOL AND PHENERGAN. LAST HEAD IMAGING WAS LAST YEAR AND NORMAL EXCEPT FOR THE PITUITARY ADENOMA. PT ALSO C/O PHOTOPHOBIA AND PHONOPHOBIA. Allergies/Adverse Reactions: nut - unspecified Allergy (Severe, Verified 06/07/17 23:01) Swelling of Tongue and Lips hydromorphone HCl [From Dilaudid] Allergy (Verified 06/07/17 23:01) Shortness of Breath Latex, Natural Rubber Allergy (Verified 06/07/17 23:01) Penicillins Allergy (Verified 06/07/17 23:01) peanuts Allergy (Severe, Uncoded 06/07/17 23:01) Swelling of Tongue and Lips Tongue and throat swells and difficulty breathing Home Medications: Cyanocobalamin 100 Mcg [Vitamin B-12 100 Mcg] 100 mcg PO WEEKLY 12/31/16 [ History] Divalproex Sodium [Divalproex Sodium ER] 500 mg PO BID 12/31/16 [History] Hydrocortisone 10 mg PO BID 12/31/16 [History] Magnesium Oxide 400 mg [Mag-Ox 400] 400 mg PO DAILY 12/31/16 [History] Alendronate Sodium 70 mg [Fosamax 70 MG] 70 mg PO WEEKLY 06/07/17 [History ] Cabergoline 0.5 mg PO 06/07/17 [History] Hydrocortisone [Cortef] 5 mg PO HS 06/07/17 [History] Ketorolac Tromethamine [Toradol] 10 mg PO Q6H PRN 06/07/17 [History] Tizanidine HCl 4 mg [Zanaflex 4 MG] 0.5 tab PO BID 06/07/17 [History] Tizanidine HCl 4 mg [Zanaflex 4 MG] 4 mg PO HS 06/07/17 [History] Hx Tetanus, Diphtheria Vaccination/Date Given: Yes (up to date) Hx Influenza Vaccination/Date Given: No Hx Pneumococcal Vaccination/Date Given: No Immunizations Up to Date: Yes - Review of Systems Eyes: Photophobia Ears, Nose, & Throat: Other (PHONOPHOBIA) Abdominal/Gastrointestinal: Nausea Neurological: Headache All Other Systems: Reviewed and Negative - Past Medical History Pertinent Past Medical History: Yes Neurological History: Migraines ENT History: No Pertinent History Cardiac History: Other Respiratory History: Asthma Endocrine Medical History: Other Musculoskeletal History: Fibromyalgia GI Medical History: No Pertinent History History: No Pertinent History Psycho-Social History: Depression Female Reproductive Disorders: Fibroids Other Medical History: "possible heart attack after of child". osteopenia - Past Surgical History Past Surgical History: Yes Neuro Surgical History: No Pertinent History Cardiac: No Pertinent History Respiratory: No Pertinent History Gastrointestinal: No Pertinent History Genitourinary: No Pertinent History Musculoskeletal: No Pertinent History Female Surgical History: Hysterectomy, Section Other Surgical History: x 2 and tubal ligation. pt and family state difficult to awaken from general anesthesia - Social History Smoking Status: Unknown if ever smoked How long have you smoked: 13 Exposure to second hand smoke: No Drug Use: none Patient Lives Alone: No - Female History Hx Last Menstrual Period: hyst Hx Now: No - Nursing Vital Signs Nursing Vital Signs: Initial Vital Signs Temperature 98.8 F 06/07/17 22:53 Pulse Rate 102 H 06/07/17 22:53 Respiratory Rate 16 06/07/17 22:53 Blood Pressure 128/71 06/07/17 22:53 O2 Sat by Pulse Oximetry 98 06/07/17 22:53 Pain Scale Pain Intensity 8 - Physical Exam General Appearance: alert Eye Exam: PERRL/EOMI, photophobia Ears, Nose, Throat Exam: TMs normal, pharynx normal, moist mucous membranes Neck Exam: normal inspection Respiratory Exam: lungs clear Cardiovascular Exam: normal heart sounds Gastrointestinal/Abdomen Exam: soft, normal bowel sounds Back Exam: normal range of motion Extremity Exam: normal inspection, normal range of motion, No pedal edema Neurologic Exam: alert, cooperative, normal mood/affect, sensation nml, No motor deficits Skin Exam: warm, dry SpO2 Interpretation: normal SpO2: 98 Oxygen Delivery: Room Air - Course Nursing assessment & vital signs reviewed: Yes Ordered Tests: Medication Summary Discontinued Medications Generic Name Dose Route Start Last Admin Trade Name Freq PRN Reason Stop Dose Admin Ketorolac Tromethamine 60 mg 06/07/17 23:08 Toradol 30 Mg Injection IM 06/07/17 23:09 STAT ONE Promethazine HCl 25 mg 06/07/17 23:08 Phenergan 25 Mg Inj IM 06/07/17 23:09 STAT ONE - Departure Time of Disposition: 23:20 Departure Disposition: Home Clinical Impression: HEADACHE Condition: Stable Critical Care Time: No Referrals: MARK NICOLE [Primary Care Provider] - Instructions: Headache Additional Instructions: FOLLOW UP WITH PRIVATE DOCTOR TOMORROW. Prescriptions: Promethazine HCl 25 mg [Phenergan 25 mg] 25 mg PO Q4H PRN PRN #14 tablet PRN Reason: Nausea/Vomiting
[2017-06-07 23:38] VITALS: BP 119/81; PULSE 80
== END 2017-06-07 23:38 | disposition home or self-care (01) ==
LOC: ED 22:03
DX: R51 Headache (principal); R11.10 Vomiting, unspecified; D35.2 Benign neoplasm of pituitary gland
CPT/HCPCS: 96372; 99284; J1885; J2550

== ENCOUNTER 2018-03-25 21:37 | Emergency (ER) | payer OTHER ==
[2018-03-25] MEDS ORDERED: SUBLIMAZE 100 MCG/2 ML IV ONE (22:05)
[2018-03-25] MEDS ORDERED: Sodium Chloride 0.9% 1000 ML 1,000 ML IV STA (22:05)
[2018-03-25] MEDS ORDERED: Zofran 4 MG/2 ML VIAL IV ONE (22:05)
--- NOTE | 2018-03-25 22:10 | ERPHSYRPT ---
- History of Present Illness Time Seen by Provider: 03/25/18 22:07 Historian: patient, family Exam Limitations: no limitations Patient Subjective Stated Complaint: pt states she has been having pain in her rt lower abd and rt lower back for approx 4 days. Triage Nursing Assessment: pt alert and oriented, asnwers questions approp. pt ambulatory with slow, steady, stooped gait. respirations nonlabored with lungs cta. abd soft, tender to light palpation on rt side. pt reports increased pain when she lets go after applying pressure to rt abd. bowel sounds present x4 quads. Physician History: pt states she has been having pain in her rt lower abd and rt lower back for approx 4 days. Patient is also complaining of fever with chills. Patient is also complaining of right upper quadrant tenderness and suprapubic tenderness. Timing/Duration: day(s) (4 days) Quality: cramping Abdominal Pain Onset Location: RUQ, RLQ, suprapubic Pain Radiation: back Severity of Pain-Max: moderate Severity of Pain-Current: moderate Modifying Factors: Improves With: nothing Associated Symptoms: loss of appetite Previous symptoms: no prior history Allergies/Adverse Reactions: nut - unspecified Allergy (Severe, Verified 06/07/17 23:01) Swelling of Tongue and Lips hydromorphone HCl [From Dilaudid] Allergy (Verified 06/07/17 23:01) Shortness of Breath Latex, Natural Rubber Allergy (Verified 06/07/17 23:01) meperidine [From Demerol] Allergy (Verified 03/25/18 21:58) Swelling of Tongue and Lips Penicillins Allergy (Verified 06/07/17 23:01) peanuts Allergy (Severe, Uncoded 06/07/17 23:01) Swelling of Tongue and Lips Tongue and throat swells and difficulty breathing Home Medications: Divalproex Sodium [Divalproex Sodium ER] 500 mg PO BID 12/31/16 [History] Baclofen 20 mg PO HS 03/25/18 [History] Gabapentin [Neurontin] 100 mg PO HS 03/25/18 [History] Linagliptin [Tradjenta] 5 mg PO DAILY 03/25/18 [History] Hx Tetanus, Diphtheria Vaccination/Date Given: Yes (up to date) Hx Influenza Vaccination/Date Given: No Hx Pneumococcal Vaccination/Date Given: No Immunizations Up to Date: Yes - Review of Systems Constitutional: No Fever, No Chills Eyes: No Symptoms Ears, Nose, & Throat: No Symptoms Respiratory: No Cough, No Dyspnea Cardiac: No Chest Pain, No Edema, No Syncope Abdominal/Gastrointestinal: Abdominal Pain, No Nausea, No Vomiting, No Diarrhea Genitourinary Symptoms: No Dysuria Musculoskeletal: No Back Pain, No Neck Pain Skin: No Rash Neurological: No Dizziness, No Focal Weakness, No Sensory Changes Psychological: No Symptoms Endocrine: No Symptoms All Other Systems: Reviewed and Negative - Past Medical History Pertinent Past Medical History: Yes Neurological History: Migraines ENT History: No Pertinent History Cardiac History: Other Respiratory History: Asthma Endocrine Medical History: Other Musculoskeletal History: Fibromyalgia GI Medical History: No Pertinent History History: No Pertinent History Psycho-Social History: Depression Female Reproductive Disorders: Fibroids Other Medical History: "possible heart attack after of child". pcos. osteopenia - Past Surgical History Past Surgical History: Yes Neuro Surgical History: No Pertinent History Cardiac: No Pertinent History Respiratory: No Pertinent History Gastrointestinal: No Pertinent History Genitourinary: No Pertinent History Musculoskeletal: No Pertinent History Female Surgical History: Hysterectomy, Section Other Surgical History: x 2 and tubal ligation. pt and family state difficult to awaken from general anesthesia - Social History Smoking Status: Current every day smoker How long have you smoked: 13 Exposure to second hand smoke: No Drug Use: none Patient Lives Alone: No - Female History Hx Last Menstrual Period: hyster Hx Now: No - Nursing Vital Signs Nursing Vital Signs: Initial Vital Signs Temperature 98.6 F 03/25/18 21:46 Pulse Rate 94 H 03/25/18 21:46 Respiratory Rate 18 03/25/18 21:46 Blood Pressure 131/77 03/25/18 21:46 O2 Sat by Pulse Oximetry 98 03/25/18 21:46 Pain Scale Pain Intensity 8 - Physical Exam General Appearance: no apparent distress, alert Eye Exam: PERRL/EOMI, eyes nml inspection Ears, Nose, Throat Exam: normal ENT inspection, pharynx normal, moist mucous membranes Neck Exam: normal inspection, non-tender, supple, full range of motion Respiratory Exam: normal breath sounds, lungs clear, No respiratory distress Cardiovascular Exam: regular rate/rhythm, normal heart sounds Gastrointestinal/Abdomen Exam: soft, tenderness, rebound, No mass, No pulsatile mass Back Exam: normal inspection, normal range of motion, No CVA tenderness, No vertebral tenderness Extremity Exam: normal inspection, normal range of motion, pelvis stable Neurologic Exam: alert, 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, cooperative, normal mood/affect, nml cerebellar function, sensation nml, No motor deficits Skin Exam: normal color, warm, dry SpO2: 98 Oxygen Delivery: Room Air - Course Nursing assessment & vital signs reviewed: Yes - CT Exams Abdomen/Pelvis CT Interpretation: Tele-radiologist Report Ordered Tests: Active Orders 24 hr Category Date Time Status ABDOMEN AND PELVIS W/0 CONTRAS [CT] Stat Exams 03/25/18 22:05 Taken AMYLASE Stat Lab 03/25/18 23:01 Completed CBC W DIFF Stat Lab 03/25/18 23:01 Completed CMP Stat Lab 03/25/18 23:01 Completed LIPASE Stat Lab 03/25/18 23:01 Completed Lactic Acid Stat Lab 03/25/18 23:00 Completed UA W/ MICROSCOPIC Stat Lab 03/25/18 23:01 Completed Urine Triage Profile Stat Lab 03/25/18 23:01 Completed Medication Summary Discontinued Medications Generic Name Dose Route Start Last Admin Trade Name Geraldq PRN Reason Stop Dose Admin Fentanyl Citrate 50 mcg 03/25/18 22:05 03/25/18 22:52 Sublimaze 100 Mcg/2 Ml IV 03/25/18 22:06 50 mcg STAT ONE Administration Fentanyl Citrate Confirm 03/25/18 22:26 Sublimaze 100 Mcg/2 Ml Administered 03/25/18 22:27 Dose 100 mcg .ROUTE .STK-MED ONE Sodium Chloride 1,000 mls @ 999 mls/hr 03/25/18 22:05 03/25/18 22:53 Sodium Chloride 0.9% 1000 Ml IV 03/25/18 23:05 999 mls/hr .Q1H1M STA Administration Sodium Chloride Confirm 03/25/18 22:27 Sodium Chloride 0.9% 1000 Ml Administered 03/25/18 22:28 Dose 1,000 mls @ ud .ROUTE .STK-MED ONE Ondansetron HCl 4 mg 03/25/18 22:05 03/25/18 22:52 Zofran 4 Mg/2 Ml Vial IV 03/25/18 22:06 4 mg STAT ONE Administration Ondansetron HCl Confirm 03/25/18 22:26 Zofran 4 Mg/2 Ml Vial Administered 03/25/18 22:27 Dose 4 mg .ROUTE .STK-MED ONE Lab/Rad Data: Laboratory Result Diagrams 03/25/18 23:01 03/25/18 23:01 Laboratory Results 03/25/18 03/25/18 03/25/18 Range/Units 23:01 23:01 23:01 WBC (4.0-10.5) K/mm3 RBC (4.1-5.4) M/mm3 Hgb (12.0-16.0) gm/dl Hct (35-47) % MCV (78-100) fl MCH (26-32) pg MCHC (32-36) g/dl RDW (11.5-14.0) % Plt Count (150-450) K/mm3 MPV (6-9.5) fl Gran % (36.0-66.0) % Eos # (Auto) (0-0.5) Absolute Lymphs (auto) (1.0-4.6) Absolute Monos (auto) (0.0-1.3) Lymphocytes % (24.0-44.0) % Monocytes % (0.0-12.0) % Eosinophils % (0.00-5.0) % Basophils % (0.0-0.4) % Absolute Granulocytes (1.4-6.9) Basophils # (0-0.4) Sodium 143 (137-145) mmol/L Potassium 3.7 (3.5-5.1) mmol/L Chloride 107 (98-107) mmol/L Carbon Dioxide 22 (22-30) mmol/L Anion Gap 17.3 H (5-15) MEQ/L BUN 11 (7-17) mg/dL Creatinine 0.68 (0.52-1.04) mg/dL Estimated GFR > 60.0 ML/MIN Glucose 97 (74-106) mg/dL Lactic Acid (0.4-2.0) Calcium 9.5 (8.4-10.2) mg/dL Total Bilirubin 0.40 (0.2-1.3) mg/dL AST 13 L (14-36) U/L ALT 10 (0-35) U/L Alkaline Phosphatase 50 (38-126) U/L Serum Total Protein 7.8 (6.3-8.2) g/dL Albumin 4.8 (3.5-5.0) g/dL Amylase 87 (30-110) U/L Lipase 221 (23-300) U/L Ur Collection Type VOID Urine Color YELLOW (YELLOW) Urine Appearance SLIGHTLY CLOUDY (CLEAR) Urine pH 7.0 (5-6) Ur Specific [place] 1.010 (1.005-1.025) Urine Protein NEGATIVE (Negative) Urine Ketones NEGATIVE (NEGATIVE) Urine Blood NEGATIVE (0-5) Lemuel/ul Urine Nitrite NEGATIVE (NEGATIVE) Urine Bilirubin NEGATIVE (NEGATIVE) Urine Urobilinogen NORMAL (0-1) mg/dL Ur Leukocyte Esterase 1+ (NEGATIVE) Urine Microscopic RBC 0-2 (0-2) /HPF Urine Microscopic WBC 2-5 (0-5) /HPF Ur Epithelial Cells MANY (FEW) /HPF Urine Bacteria FEW (NEGATIVE) /HPF Urine Culture Reflexed NO (NO) Urine Glucose NEGATIVE (NEGATIVE) mg/dL Urine Opiates Level NEGATIVE (NEGATIVE) Ur Methadone NEGATIVE (NEGATIVE) Urine Barbiturates NEGATIVE (NEGATIVE) Ur Phencyclidine (PCP) NEGATIVE (NEGATIVE) Urine Amphetamine NEGATIVE (NEGATIVE) U Benzodiazepine Level NEGATIVE (NEGATIVE) Urine Cocaine NEGATIVE (NEGATIVE) Urine Marijuana (THC) NEGATIVE (NEGATIVE) Specimen Received 03/25/18 2300 03/25/18 03/25/18 Range/Units 23:01 23:00 WBC 8.9 (4.0-10.5) K/mm3 RBC 4.66 (4.1-5.4) M/mm3 Hgb 14.9 (12.0-16.0) gm/dl Hct 42.8 (35-47) % MCV 91.8 (78-100) fl MCH 32.0 (26-32) pg MCHC 34.8 (32-36) g/dl RDW 13.4 (11.5-14.0) % Plt Count 260 (150-450) K/mm3 MPV 9.9 H (6-9.5) fl Gran % 54.8 (36.0-66.0) % Eos # (Auto) 0.43 (0-0.5) Absolute Lymphs (auto) 2.91 (1.0-4.6) Absolute Monos (auto) 0.66 (0.0-1.3) Lymphocytes % 32.8 (24.0-44.0) % Monocytes % 7.4 (0.0-12.0) % Eosinophils % 4.8 (0.00-5.0) % Basophils % 0.2 (0.0-0.4) % Absolute Granulocytes 4.85 (1.4-6.9) Basophils # 0.02 (0-0.4) Sodium (137-145) mmol/L Potassium (3.5-5.1) mmol/L Chloride (98-107) mmol/L Carbon Dioxide (22-30) mmol/L Anion Gap (5-15) MEQ/L BUN (7-17) mg/dL Creatinine (0.52-1.04) mg/dL Estimated GFR ML/MIN Glucose (74-106) mg/dL Lactic Acid 0.9 (0.4-2.0) Calcium (8.4-10.2) mg/dL Total Bilirubin (0.2-1.3) mg/dL AST (14-36) U/L ALT (0-35) U/L Alkaline Phosphatase (38-126) U/L Serum Total Protein (6.3-8.2) g/dL Albumin (3.5-5.0) g/dL Amylase (30-110) U/L Lipase (23-300) U/L Ur Collection Type Urine Color (YELLOW) Urine Appearance (CLEAR) Urine pH (5-6) Ur Specific [place] (1.005-1.025) Urine Protein (Negative) Urine Ketones (NEGATIVE) Urine Blood (0-5) Lemuel/ul Urine Nitrite (NEGATIVE) Urine Bilirubin (NEGATIVE) Urine Urobilinogen (0-1) mg/dL Ur Leukocyte Esterase (NEGATIVE) Urine Microscopic RBC (0-2) /HPF Urine Microscopic WBC (0-5) /HPF Ur Epithelial Cells (FEW) /HPF Urine Bacteria (NEGATIVE) /HPF Urine Culture Reflexed (NO) Urine Glucose (NEGATIVE) mg/dL Urine Opiates Level (NEGATIVE) Ur Methadone (NEGATIVE) Urine Barbiturates (NEGATIVE) Ur Phencyclidine (PCP) (NEGATIVE) Urine Amphetamine (NEGATIVE) U Benzodiazepine Level (NEGATIVE) Urine Cocaine (NEGATIVE) Urine Marijuana (THC) (NEGATIVE) Specimen Received - Departure Time of Disposition: 00:10 Departure Disposition: Home Clinical Impression: Abdominal pain Qualifiers: Abdominal location: upper abdomen, unspecified Qualified Code(s): R10.10 - Upper abdominal pain, unspecified Ovarian cyst Qualifiers: Laterality: right Qualified Code(s): N83.201 - Unspecified ovarian cyst, right side Condition: Stable Critical Care Time: Yes Critical Care Time(excluding separately billable procedures): 30-74 minutes Referrals: MARK NICOLE [Primary Care Provider] - Instructions: Flank Pain, Ovarian Cyst (DC) Additional Instructions: ABDOMINAL PAIN 1. There are several different causes for abdominal pain, some of which may not be able to be identified on initial examination. 2. The important thing to remember is that bodily functions can change in a short period of time. If you notice any of the following symptoms, return to the emergency department or consult your doctor immediately: A. Worsening pain or no improvement in the next 12 hours. B. Increasing, severe abdominal pain C. Blood in stool D. Black stools E. Persistent vomiting F. Fever or chills or other symptoms NARESH BE was seen on 03/26/18 n the Emergency Room. At that time you were treated for an emergent condition, during your visit Laboratory, Radiology and/or other procedures may have been ordered. It is very important that you follow-up with your Primary Care Physician MARK NICOLE within the next 24-48 hours to review your Emergency Room visit and the final results of testing that was ordered. Some test results such as Urine Cultures, Blood Cultures, and other cultures if ordered will not be finalized for 24-48 hours. If you do not have a Primary Care Provider please call the medical records department at [phone] to obtain a copy of your results or you may sign into our patient portal to obtain these results by visiting us @ [email or web address] and completing the following steps: 1. Click on the Patient Portal link 2. Click the Patient Self Enrollment Link to complete the enrollment form and entering your 3. Once the enrollment form is completed you will receive an email with a temporary ID and password at the email address you provided. 4. Next choose a user name and password. Your user name must be at least 4 characters long and your password must be at least 4 characters long. 5. Choose a security question from the list and provide your answer to the question. If you already have signed into the Health Portal you may access your Health Care Information 04/04 by the following steps: 1. Login to our website @ [email or web address] 2. Enter your original user name and password. FAQS The [facility] Health Portal is an online tool that contains your Lab Results, Radiology Reports, Visit History, Discharge Instructions and Health Summary Lab and Radiology Results will not be available for 72 hours on the portal. The Portal is a secure site, passwords are encryted and URLs are re-written so they cannot be copied and pasted. You and authorized family members are the only ones who can access your Portal. Also there is a timeout feature that protects your information if you leave the Portal page open. If you have technical difficulty please use the Contact Us link on the page this will allow you to submit any questions you have regarding the Portal or you may contact the Medical Record Department at [phone]. Prescriptions: Etodolac 400 mg [Lodine 400 mg] 400 mg PO BID #10 tablet
[2018-03-25] MEDS ORDERED: SUBLIMAZE 100 MCG/2 ML ONE (22:26)
[2018-03-25] MEDS ORDERED: Zofran 4 MG/2 ML VIAL ONE (22:26)
[2018-03-25] MEDS ORDERED: Sodium Chloride 0.9% 1000 ML 1,000 ML ONE (22:27)
[2018-03-25 23:05] LABS: BASOPHIL % 0.2 % (0.0-0.4); Basophil (Absolute #) 0.02 (0-0.4); Eosinophil % 4.8 % (0.00-5.0); Eosinophil (Absolute #) 0.43 (0-0.5); Granulocyte Absolute (ANC) 4.85 (1.4-6.9); Granulocytes % 54.8 % (36.0-66.0); Hematocrit 42.8 % (35-47); Hemoglobin 14.9 gm/dl (12.0-16.0); Lymphocyte (Absolute #) 2.91 (1.0-4.6); Lymphocytes % 32.8 % (24.0-44.0); Mean Cell Volume 91.8 fl (78-100); Mean Corpuscular Hgb Concent. 34.8 g/dl (32-36); Mean Platelet Volume 9.9 fl (6-9.5); Monocyte (Absolute #) 0.66 (0.0-1.3); Monocytes % 7.4 % (0.0-12.0); Platelet Count 260 K/mm3 (150-450); Red Blood Count 4.66 M/mm3 (4.1-5.4); Red Cell Distribution Width 13.4 % (11.5-14.0); White Blood Count 8.9 K/mm3 (4.0-10.5)
[2018-03-25 23:39] LABS: ALBUMIN 4.8 g/dL (3.5-5.0); ALKALINE PHOSPHATASE 50 U/L (38-126); AMYLASE 87 U/L (30-110); ANION GAP 17.3 MEQ/L (5-15); BLOOD UREA NITROGEN 11 mg/dL (7-17); CHLORIDE 107 mmol/L (98-107); Calcium 9.5 mg/dL (8.4-10.2); Carbon Dioxide 22 mmol/L (22-30); Creatinine 1 0.68 mg/dL (0.52-1.04); Glucose 97 mg/dL (74-106); LIPASE 221 U/L (23-300); Potassium 3.7 mmol/L (3.5-5.1); SGOT/AST 13 U/L (14-36); SGPT/ALT 10 U/L (0-35); SODIUM 143 mmol/L (137-145); Total Protein 7.8 g/dL (6.3-8.2)
[2018-03-25 23:56] LABS: Amphetamine,Urine NEGATIVE (NEGATIVE); Barbiturate,Urine NEGATIVE (NEGATIVE); Benzodiazepine,Urine NEGATIVE (NEGATIVE); Cocaine,Urine NEGATIVE (NEGATIVE); Methadone,Urine NEGATIVE (NEGATIVE); Opiate,Urine NEGATIVE (NEGATIVE); PCP,Urine NEGATIVE (NEGATIVE); THC,Urine NEGATIVE (NEGATIVE)
[2018-03-26 00:09] LABS: Appearance SLIGHTLY CLOUDY (CLEAR); Bacteria FEW /HPF (NEGATIVE); Bilirubin NEGATIVE (NEGATIVE); Blood NEGATIVE Ery/ul (0-5); Epithelial Cells MANY /HPF (FEW); Glucose NEGATIVE (NEGATIVE); Ketones NEGATIVE (NEGATIVE); Leukocyte Esterase 1+ (NEGATIVE); Nitrite NEGATIVE (NEGATIVE); Protein,Urine Dip NEGATIVE (Negative); RBC 0-2 /HPF (0-2); Urobilinogen NORMAL mg/dL (0-1)
[2018-03-26 00:47] VITALS: BP 106/75; PULSE 74; O2SAT 99
--- NOTE | 2018-03-26 07:03 | XRAY ---
Indication: Right abdomen pain, nausea, vomiting, diarrhea, and fever 4 days. Multiple contiguous axial images obtained through the abdomen and pelvis without contrast as ordered. Comparison: December 31, 2016. Lung bases remain clear. Heart is not enlarged. Noncontrasted stomach and bowel loops appear nonobstructed. Again appendix is not seen. 3.4 cm right ovary cyst, smaller than before. No free fluid/air. Remaining liver, gallbladder, pancreas, spleen, adrenal glands, kidneys, ureters, bladder, uterus, and aorta appear unremarkable for noncontrast exam. Osseous structures intact. Impression: 1. Smaller 3.4 cm right ovary cyst. 2. Remaining CT abdomen/pelvis without contrast exam is negative. Comment: Preliminary interpretation was made by [facility]. No discrepancy. CTDI 9.09
== END 2018-03-26 00:33 | disposition home or self-care (01) ==
LOC: ED 21:37
DX: R10.11 Right upper quadrant pain (principal); R10.31 Right lower quadrant pain; N83.201 Unspecified ovarian cyst, right side; Z79.899 Other long term (current) drug therapy
CPT/HCPCS: 36000; 36415; 74176; 80053; 80307; 81000; 81002; 82150; 83605; 83690; 85025; 96360; 96361; 96374; 96375; 99284; J2405; J3010

== ENCOUNTER 2018-03-27 12:30 | Observation (INO) | payer OTHER ==
[2018-03-27] MEDS ORDERED: Zofran 4 MG/2 ML VIAL IV PRN (13:27)
[2018-03-27] MEDS ORDERED: MORPHINE SULFATE 4 MG INJ IV PRN (13:27)
[2018-03-27] MEDS ORDERED: Sodium Chloride 0.9% 1000 ML 1,000 ML IV SCH (13:30)
[2018-03-27 14:40] LABS: Appearance CLEAR (CLEAR); Bilirubin SMALL (NEGATIVE); Blood NEGATIVE Ery/ul (0-5); Glucose NEGATIVE (NEGATIVE); Ketones NEGATIVE (NEGATIVE); Leukocyte Esterase TRACE (NEGATIVE); Nitrite NEGATIVE (NEGATIVE); Protein,Urine Dip NEGATIVE (Negative); Specific Gravity 1.005 (1.005-1.025); Urobilinogen NORMAL mg/dL (0-1)
[2018-03-27 14:51] LABS: Bacteria RARE /HPF (NEGATIVE); Epithelial Cells RARE /HPF (FEW)
[2018-03-27 14:51] LABS: BASOPHIL % 0.1 % (0.0-0.4); Basophil (Absolute #) 0.01 (0-0.4); Eosinophil (Absolute #) 0.31 (0-0.5); Granulocyte Absolute (ANC) 4.68 (1.4-6.9); Granulocytes % 60.1 % (36.0-66.0); Hematocrit 42.2 % (35-47); Hemoglobin 14.3 gm/dl (12.0-16.0); Lymphocyte (Absolute #) 2.28 (1.0-4.6); Lymphocytes % 29.3 % (24.0-44.0); Mean Cell Volume 93.4 fl (78-100); Mean Corpuscular Hemoglobin 31.6 pg (26-32); Mean Corpuscular Hgb Concent. 33.9 g/dl (32-36); Mean Platelet Volume 10.2 fl (6-9.5); Monocyte (Absolute #) 0.51 (0.0-1.3); Monocytes % 6.5 % (0.0-12.0); Platelet Count 220 K/mm3 (150-450); Red Blood Count 4.52 M/mm3 (4.1-5.4); Red Cell Distribution Width 13.2 % (11.5-14.0); White Blood Count 7.8 K/mm3 (4.0-10.5)
[2018-03-27] MEDS ORDERED: BENADRYL 50 MG/ML IV ONE ×2 (14:58→16:28)
[2018-03-27] MEDS: Lactated Ringers 1,000 ML IV SCH ×2 (15:16→22:28)
[2018-03-27 15:23] LABS: ALKALINE PHOSPHATASE 32 U/L (38-126); AMYLASE 80 U/L (30-110); ANION GAP 11.8 MEQ/L (5-15); BLOOD UREA NITROGEN 6 mg/dL (7-17); CHLORIDE 110 mmol/L (98-107); Calcium 8.7 mg/dL (8.4-10.2); Carbon Dioxide 22 mmol/L (22-30); Creatinine 1 0.55 mg/dL (0.52-1.04); Glucose 89 mg/dL (74-106); LIPASE 117 U/L (23-300); Potassium 4.3 mmol/L (3.5-5.1); SGOT/AST 19 U/L (14-36); SGPT/ALT 8 U/L (0-35); SODIUM 139 mmol/L (137-145); Total Protein 6.7 g/dL (6.3-8.2)
--- NOTE | 2018-03-27 15:39 | XRAY ---
Indication: Abdomen pain and fever. Gallbladder sonogram performed. Comparison: None Gallbladder normally distended without gallstones, wall thickening, or pericholecystic fluid. Common bile duct measures 2.1 mm. No intrahepatic biliary distention. Remaining visualized portions of the liver, pancreas, and right kidney appear sonographically unremarkable. Right kidney measures 10.2 cm in length. No ascites. Impression: Negative gallbladder sonogram.
[2018-03-27] MEDS: TORAdol 30 mg Injection IV PRN (19:33)
[2018-03-27] MEDS: Depakote EXTENDED RELEASE 250 MG PO SCH (21:58)
[2018-03-27] MEDS ORDERED: LIORESAL 10 MG PO SCH (22:00)
[2018-03-27] MEDS ORDERED: Neurontin 100 MG PO SCH (22:00)
[2018-03-28 00:38] VITALS: O2SAT 97
[2018-03-28] MEDS: TORAdol 30 mg Injection IV PRN ×2 (04:03→11:05)
[2018-03-28 07:01] VITALS: BP 91/51; PULSE 66
[2018-03-28] MEDS: Lactated Ringers 1,000 ML IV SCH (07:44)
--- NOTE | 2018-03-28 08:51 | XRAY ---
Indication: Abdominal pain. Nausea and vomiting. Multiple contiguous axial images obtained through the abdomen and pelvis using 80 cc Isovue 370 contrast. Enteric contrast also used. Comparison: March 25, 2018. Lung bases now demonstrates minimal bibasilar dependent atelectasis. No infiltrate or effusion. Heart is not enlarged. Stomach is distended with contrast. Contrasted bowel loops appear nonobstructed. Normal appendix. Stable 3.4 cm right ovary cyst with now small cul-de-sac fluid presumed from rupture/leaking cyst. No walled off fluid collection or free air. Remaining liver, gallbladder, pancreas, spleen, adrenal glands, kidneys, ureters, bladder, uterus, and aorta appear normal in CT appearance and attenuation. No pathologic retroperitoneal lymphadenopathy. Impression: 1. Stable 3.4 cm right ovary cyst with new cul-de-sac free fluid favoring rupture/leaking cyst. 2. Remaining CT abdomen/pelvis with contrast exam is negative. CT DI 9.14
[2018-03-28] MEDS: Depakote EXTENDED RELEASE 250 MG PO SCH (09:23)
--- NOTE | 2018-03-28 09:50 | PCM.DCORD ---
- Discharge Discharge Date: 03/28/18 Disposition: Home, Self-Care Condition: Good Prescriptions: Continue Divalproex Sodium [Divalproex Sodium ER] 500 mg PO BID Baclofen 20 mg PO HS Gabapentin [Neurontin] 100 mg PO HS Etodolac 400 mg [Lodine 400 mg] 400 mg PO BID #10 tablet Discontinued Linagliptin [Tradjenta] 5 mg PO DAILY Follow up with: MARK NICOLE [Primary Care Provider] - 1 Week
[2018-03-28] MEDS ORDERED: Neurontin 100 MG PO SCH (10:00)
--- NOTE | 2018-03-28 12:55 | DS ---
ADMISSION DIAGNOSIS: Right upper quadrant abdominal pain. DISCHARGE DIAGNOSIS: RIGHT UPPER QUADRANT ABDOMINAL PAIN. DISCHARGE PHYSICAL EXAMINATION: VITALS: Temperature current 98.8F, temperature max 98.9F, heart rate 60 to 72, respiratory rate 16 to 18, blood pressure 83 to 116 over 50 to 58, weight 63.9 kg. Oxygen saturation 97 to 99% on room air. GENERAL: The patient is lying in bed a pleasant talkative lady in no acute distress. CVS: She has a regular rate and rhythm. No murmurs, gallops or rubs are appreciated. CHEST: Clear to auscultation bilaterally. No crackles or wheezes. ABDOMEN: Soft, mild right upper quadrant tenderness. No guarding. No rigidity. Normal bowel sounds. EXTREMITIES: No clubbing, cyanosis or edema. SKIN: Warm, dry and intact. HOSPITAL COURSE: RIGHT UPPER QUADRANT PAIN: She had a CT scan that did not reveal any acute abnormalities. She was noted to have a right ovarian cyst. She had a gallbladder ultrasound that was negative. The patient was instructed that she should drink plenty of fluids at home and to eat a bland diet and to follow up with Dr. Cazares. I will see if the transportation planner was able to get a HIDA scan approved as an outpatient for or Tuesday. The HIDA scan was not available while she was here in the hospital and the discharge planners also noted that her insurance company did not want to cover this test. The patient knows to come back if she has a fever or worsening symptoms.
== END 2018-03-28 11:25 | disposition home or self-care (01) ==
LOC: MED SURG 12:37
PROVIDERS: ADMIT Family Medicine; ATTEND Family Medicine
DX: R10.11 Right upper quadrant pain (principal)
CPT/HCPCS: 36415; 74177; 76705; 80053; 81000; 82150; 83605; 83690; 84703; 85025; G0378; J1200; J1885; J2270; J2405; A9270-GY

== ENCOUNTER 2018-04-21 05:50 | Day surgery (SDC) | payer OTHER ==
[2018-04-21] MEDS ORDERED: DIPRIVAN 200 MG/20 ML IV ONE (05:51)
[2018-04-21] MEDS ORDERED: Lactated Ringers 1,000 ML IV SCH (06:00)
--- NOTE | 2018-04-21 08:46 | OP ---
SURGERY DATE/TIME: 04/21/2018 0757 PREOPERATIVE DIAGNOSIS: Right upper quadrant abdominal pain. POSTOPERATIVE DIAGNOSIS: Mild gastritis. PROCEDURE: Esophagogastroduodenoscopy with biopsy. SURGEON: Dr. Zambrano. ANESTHESIA: Medications were given by the anesthesia department. BRIEF HISTORY: The patient is a 37 year old white female presenting for endoscopic evaluation. She reports she has been having problems with right upper quadrant abdominal pain for the past month with initially diarrhea which has diminished but she has been taking new medication by mouth without any help. She had a CT scan, ultrasound and HIDA scans done of the gallbladder which were all negative. The patient does complain of fibromyalgia and does occasionally take anti-inflammatories at night and also takes Imodium on a regular basis. The patient was appraised of the risks of the procedure including the risk of perforation, phlebitis, untoward reaction to medication bleeding and missed lesions. The patient verbalized her understanding and desired to have the procedure performed. DESCRIPTION OF PROCEDURE: The patient was given the medications by the anesthesia department. She had continuous pulse oximetry, ECG monitoring, intermittent blood pressure monitoring and tidal CO2 monitoring during the examination. She was placed in the left lateral decubitus position. A bite block was placed and the flexible Olympus gastroscope was used to intubate the oropharynx. A view of the larynx was obtained and was normal. The scope was easily introduced in the esophagus which was normal throughout its length. The stomach was entered where normal gastric rugal folds were seen and these distended nicely with insufflation of air. The scope was passed along the greater curvature of the stomach to the antrum which appeared to be mildly erythematous. The pylorus was encountered and intubated. The duodenum inspected and found to be normal. The scope is withdrawn towards the stomach. A retroflex view was obtained of the lesser curvature, fundus and cardia regions of the stomach and these appeared to be essentially normal. The scope was then redirected towards the antrum and biopsies were obtained to rule out the presence of Helicobacter pylori-type organisms. The scope was then removed from the patient who tolerated the procedure well and was sent back to outpatient recovery in good condition.
[2018-04-21 08:59] VITALS: O2SAT 98
[2018-04-21 10:11] VITALS: BP 100/62; PULSE 72
== END 2018-04-21 09:45 | disposition home or self-care (01) ==
LOC: SDC 05:50
PROVIDERS: ATTEND Family Medicine
DX: R10.11 Right upper quadrant pain (principal); K29.70 Gastritis, unspecified, without bleeding
CPT/HCPCS: 88305; 94250; J2704

== ENCOUNTER 2018-07-31 19:20 | Emergency (ER) | payer OTHER ==
--- NOTE | 2018-07-31 20:25 | ERPHSYRPT ---
- History of Present Illness Time Seen by Provider: 07/31/18 20:22 Source: patient, family Exam Limitations: no limitations Patient Subjective Stated Complaint: Left shoulder pain, left side of face Triage Nursing Assessment: Patient ambulated into ED per self and transferred self to bed. Patient complains of left shoulder pain, pain in left side of face. Patient states pain starts in left shoulder and radiates down to finger tips causing fingertips of left hand to be numb then pain moves up to neck, jaw , and face. Patient states she was lifting fifty pound feed bags off of the shelf and into the car Tuesday evening. Patient states she started having pain, but the pain is unbearable today 05/22. Patient A+O X 3. Patient has no visible redness, swelling or areas noted to left shoulder, neck and face. Patient does has rash on skin more on left side. Patient states it's "stress hives". Physician History: The patient is a 38-year-old female with her complaining of left shoulder and left neck spasm and pain that has been increasing since Tuesday morning. She states she was lifting 50 pound feed Sacks on Tuesday afternoon and thinks this may have caused the problem. She has some tingling going down her left arm to her fingertips. It hurts for her to turn her head to the left and right. It hurts when she raises her left arm higher than her shoulder. She states it feels like she has slept wrong on it. She has tried Tylenol and baclofen without relief. Her past medical history is significant for migraine headaches, fibromyalgia, pituitary adenoma. Occurred: days ago (3) Method of Injury: other (lifting) Quality: constant, cramping Severity of Pain-Max: severe Severity of Pain-Current: severe Extremities Pain Location: shoulder: left (and left neck) Modifying Factors: Improves With: nothing Associated Symptoms: none Allergies/Adverse Reactions: nut - unspecified Allergy (Severe, Verified 07/31/18 19:50) Swelling of Tongue and Lips hydromorphone HCl [From Dilaudid] Allergy (Verified 07/31/18 19:50) Shortness of Breath Latex, Natural Rubber Allergy (Verified 07/31/18 19:50) meperidine [From Demerol] Allergy (Verified 07/31/18 19:50) Swelling of Tongue and Lips Penicillins Allergy (Verified 07/31/18 19:50) peanuts Allergy (Severe, Uncoded 07/31/18 19:50) Swelling of Tongue and Lips Tongue and throat swells and difficulty breathing Home Medications: Divalproex Sodium [Divalproex Sodium ER] 500 mg PO HS 12/31/16 [History] Baclofen 20 mg PO HS 03/25/18 [History] Cabergoline 0.5 mg PO UD 04/20/18 [History] Omeprazole 40 mg PO DAILY 04/20/18 [History] Famotidine 40 mg PO DAILY 07/31/18 [History] Hx Tetanus, Diphtheria Vaccination/Date Given: No Hx Influenza Vaccination/Date Given: No Hx Pneumococcal Vaccination/Date Given: No Immunizations Up to Date: Yes - Review of Systems Constitutional: No Fever, No Chills Eyes: No Symptoms Ears, Nose, & Throat: No Symptoms Respiratory: No Cough, No Dyspnea Cardiac: No Chest Pain, No Edema, No Syncope Abdominal/Gastrointestinal: No Abdominal Pain, No Nausea, No Vomiting, No Diarrhea Genitourinary Symptoms: No Dysuria Musculoskeletal: Myalgias Skin: No Rash Neurological: No Dizziness, No Focal Weakness, No Sensory Changes Psychological: No Symptoms Endocrine: No Symptoms Hematologic/Lymphatic: No Symptoms Immunological/Allergic: No Symptoms All Other Systems: Reviewed and Negative - Past Medical History Pertinent Past Medical History: Yes Neurological History: Migraines ENT History: No Pertinent History Cardiac History: Other Respiratory History: Asthma Endocrine Medical History: Other Musculoskeletal History: Fibromyalgia GI Medical History: No Pertinent History History: No Pertinent History Psycho-Social History: Depression Female Reproductive Disorders: Fibroids Other Medical History: heart stop after child apr 2000,. pcos,cystic ovarian syndrome. osteopenia,. Pituitary adeanoma - Past Surgical History Past Surgical History: Yes Neuro Surgical History: No Pertinent History Cardiac: No Pertinent History Respiratory: No Pertinent History Gastrointestinal: No Pertinent History Genitourinary: No Pertinent History Musculoskeletal: No Pertinent History Female Surgical History: Hysterectomy, Section, Tubal Ligation Other Surgical History: egd 2013, x 2 and tubal ligation. pt and family state difficult to awaken from general anesthesia - Social History Smoking Status: Current every day smoker How long have you smoked: 15 years Exposure to second hand smoke: Yes Drug Use: none Patient Lives Alone: No - Female History Hx Last Menstrual Period: Hyserectomy 2016 Hx Now: No - Nursing Vital Signs Nursing Vital Signs: Initial Vital Signs Temperature 97.9 F 07/31/18 19:36 Pulse Rate 94 H 07/31/18 19:36 Respiratory Rate 18 07/31/18 19:36 Blood Pressure 115/72 07/31/18 19:36 O2 Sat by Pulse Oximetry 100 07/31/18 19:36 Pain Scale Pain Intensity 10 - Physical Exam General Appearance: moderate distress, thin Eyes, Ears, Nose, Throat Exam: moist mucous membranes Neck Exam: limited range of motion, tenderness lateral (tenderness left lateral neck with light palpation) Cardiovascular/Respiratory Exam: chest non-tender, normal breath sounds, regular rate/rhythm, no respiratory distress Abdominal Exam: non-tender, No guarding Back Exam: normal inspection, No vertebral tenderness Shoulder Exam: limited ROM, soft tissue tenderness (muscle spasm left superior shoulder) Elbow/Forearm Exam: normal inspection Wrist Exam: normal inspection Hand Exam: normal inspection Neuro/Tendon Exam: normal sensation, normal motor functions Mental Status Exam: alert, 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, cooperative Skin Exam: normal color, warm, dry SpO2 Interpretation: normal SpO2: 100 Oxygen Delivery: Room Air - Radiology Exams C-Spine X-ray Interpretation: Interpreted by me, No Fracture, No Subluxation, Other ( reversal of normal lordosis ) Ordered Tests: Active Orders 24 hr Category Date Time Status CERVICAL SPINE MINIMUM 4 VIEWS Stat Exams 07/31/18 20:26 Taken Medication Summary Discontinued Medications Generic Name Dose Route Start Last Admin Trade Name Mary PRN Reason Stop Dose Admin Ketorolac Tromethamine 60 mg 07/31/18 20:26 07/31/18 20:36 Toradol 30 Mg Injection IM 07/31/18 20:27 60 mg STAT ONE Administration Ketorolac Tromethamine Confirm 07/31/18 20:31 Toradol 30 Mg Injection Administered 07/31/18 20:32 Dose 60 mg .ROUTE .STK-MED ONE Promethazine HCl 50 mg 07/31/18 20:26 07/31/18 20:36 Phenergan 25 Mg Inj IM 07/31/18 20:27 50 mg STAT ONE Administration Promethazine HCl Confirm 07/31/18 20:31 Phenergan 25 Mg Inj Administered 07/31/18 20:32 Dose 50 mg .ROUTE .STK-MED ONE - Progress Progress: improved Progress Note: 07/31/18 21:48 mildly improved after toradol 60 mg and phenergan 50 mg IM. will try ativan 2 mg IM. Counseled pt/family regarding: diagnosis, rad results - Departure Time of Disposition: 21:50 Departure Disposition: Home Clinical Impression: Neck muscle spasm Condition: Stable Critical Care Time: No Referrals: KATERIN BENÍTEZ [Primary Care Provider] - Additional Instructions: You have a muscle spasm to the left side of her neck and left shoulder. You were given Toradol 60 mg, intermittent 50 mg, and Ativan 2 mg by IM in the ER. Take Flexeril 10 mg every 8 hours as needed. Massage the area. Follow-up with your primary medical doctor on Tuesday if no improvement. Prescriptions: Cyclobenzaprine HCl [Flexeril] 10 mg PO Q8H PRN PRN #10 tablet PRN Reason: Muscle Spasms
[2018-07-31] MEDS ORDERED: Phenergan 25 MG INJ IM ONE (20:26)
[2018-07-31] MEDS ORDERED: TORAdol 30 mg Injection IM ONE (20:26)
[2018-07-31] MEDS ORDERED: Phenergan 25 MG INJ ONE (20:31)
[2018-07-31] MEDS ORDERED: TORAdol 30 mg Injection ONE (20:31)
[2018-07-31] MEDS ORDERED: Ativan 2 MG/1 ML VIAL IM ONE (21:49)
[2018-07-31] MEDS ORDERED: Ativan 2 MG/1 ML VIAL ONE (22:00)
[2018-07-31 22:34] VITALS: BP 114/66; PULSE 66; O2SAT 98
--- NOTE | 2018-08-01 08:57 | XRAY ---
Indication: Pain following lifting. Left facial swelling. Comparison: None 6 views of the cervical spine demonstrates cervical lordotic straightening, positional versus paraspinal spasm. Vertebral body heights and disc spaces maintained. No acute fracture, subluxation, or foraminal narrowing. Visualized soft tissues unremarkable. Impression: Cervical lordotic straightening in a otherwise negative cervical spine.
== END 2018-07-31 22:35 | disposition home or self-care (01) ==
LOC: ED 19:20
DX: M62.830 Muscle spasm of back (principal); M25.512 Pain in left shoulder; M62.838 Other muscle spasm; M54.2 Cervicalgia; Z79.899 Other long term (current) drug therapy
CPT/HCPCS: 72050; 96372; 99284; J1885; J2060; J2550

== ENCOUNTER 2018-08-22 11:42 | Emergency (ER) | payer OTHER ==
--- NOTE | 2018-08-22 12:46 | ERPHSYRPT ---
- History of Present Illness Time Seen by Provider: 08/22/18 12:40 Source: patient Exam Limitations: no limitations Patient Subjective Stated Complaint: Got up and went to the bathroom and went back to bed and woke with one of her dogs with his face in hers barking like someone was at the door and another laying on her chest and they were both staring at her, she went to sit up and was very confused and had wet her pants, feels very weak and foggy and is processing information slowly Triage Nursing Assessment: Pt stated that she got up and went to the bathroom and went back to bed and woke with one of her dogs with his face in hers barking like someone was at the door and another laying on her chest and they were both staring at her, she went to sit up and was very confused and had wet her pants, feels very weak and foggy and is processing information slowly, pt believes she had a seizure, takes Depakote for migraines and a Pituitary adeanoma, forgot to take medication yesterday, mild weakness on left upper extremity, vitals wnl, reports that she can see everything clear right now and she always wears glasses but is not wearing them right now, has a hx of chronic pain but doesn't feel any pain now Physician History: 38 y/o white female on dilantin for tx of migraine headaches and known pituitary tumor presents with what she believes was a seizure. pt forgot dilantin dose yesterday pm. pt woke up to dogs on her, no recollection on how she was in the position she was in and had lost bladder control. her mind is foggy. Allergies/Adverse Reactions: nut - unspecified Allergy (Severe, Verified 08/22/18 12:05) Swelling of Tongue and Lips hydromorphone HCl [From Dilaudid] Allergy (Verified 08/22/18 12:05) Shortness of Breath Latex, Natural Rubber Allergy (Verified 08/22/18 12:05) meperidine [From Demerol] Allergy (Verified 08/22/18 12:05) Swelling of Tongue and Lips Penicillins Allergy (Verified 08/22/18 12:05) peanuts Allergy (Severe, Uncoded 08/22/18 12:05) Swelling of Tongue and Lips Tongue and throat swells and difficulty breathing Home Medications: Divalproex Sodium [Divalproex Sodium ER] 500 mg PO HS 12/31/16 [History] Baclofen 20 mg PO HS 03/25/18 [History] Cabergoline 0.5 mg PO 2XW 04/20/18 [History] Omeprazole 40 mg PO DAILY 04/20/18 [History] Famotidine 40 mg PO DAILY 07/31/18 [History] Hx Tetanus, Diphtheria Vaccination/Date Given: No Hx Influenza Vaccination/Date Given: No Hx Pneumococcal Vaccination/Date Given: No - Past Medical History Pertinent Past Medical History: Yes Neurological History: Migraines ENT History: No Pertinent History Cardiac History: Other Respiratory History: Asthma Endocrine Medical History: Other Musculoskeletal History: Fibromyalgia GI Medical History: No Pertinent History History: No Pertinent History Psycho-Social History: Depression Female Reproductive Disorders: Fibroids Other Medical History: heart stop after child apr 2000,. pcos,. osteopenia,. Pituitary adeanoma - Past Surgical History Past Surgical History: Yes Neuro Surgical History: No Pertinent History Cardiac: No Pertinent History Respiratory: No Pertinent History Gastrointestinal: No Pertinent History Genitourinary: No Pertinent History Musculoskeletal: No Pertinent History Female Surgical History: Hysterectomy, Section, Tubal Ligation Other Surgical History: egd 2013, x 2 and tubal ligation. pt and family state difficult to awaken from general anesthesia - Social History Smoking Status: Current every day smoker How long have you smoked: 15 years Exposure to second hand smoke: Yes Drug Use: none Patient Lives Alone: No - Female History Hx Now: No (hysterectomy has ovaries) - Nursing Vital Signs Nursing Vital Signs: Initial Vital Signs Temperature 97.9 F 08/22/18 11:50 Pulse Rate 81 08/22/18 11:50 Blood Pressure 122/77 08/22/18 11:50 O2 Sat by Pulse Oximetry 100 08/22/18 11:50 Pain Scale Pain Intensity 0 - Physical Exam SpO2: 100 Oxygen Delivery: Room Air Ordered Tests: Active Orders 24 hr Category Date Time Status Clean Catch Urine Specimen STAT Care 08/22/18 12:46 Active IV Insertion STAT Care 08/22/18 12:46 Active HEAD WITHOUT CONTRAST [CT] Stat Exams 08/22/18 12:47 Completed CBC W DIFF Stat Lab 08/22/18 12:46 Completed CMP Stat Lab 08/22/18 13:20 Completed ETHYL ALCOHOL Stat Lab 08/22/18 13:20 Completed UA W/RFX UR CULTURE Stat Lab 08/22/18 12:56 Completed Urine Triage Profile Stat Lab 08/22/18 12:56 Completed Lab/Rad Data: Laboratory Result Diagrams 08/22/18 12:46 08/22/18 13:20 Laboratory Results 08/22/18 08/22/18 08/22/18 Range/Units 13:20 12:56 12:56 WBC (4.0-10.5) K/mm3 RBC (4.1-5.4) M/mm3 Hgb (12.0-16.0) gm/dl Hct (35-47) % MCV (78-100) fl MCH (26-32) pg MCHC (32-36) g/dl RDW (11.5-14.0) % Plt Count (150-450) K/mm3 MPV (6-9.5) fl Gran % (36.0-66.0) % Eos # (Auto) (0-0.5) Absolute Lymphs (auto) (1.0-4.6) Absolute Monos (auto) (0.0-1.3) Lymphocytes % (24.0-44.0) % Monocytes % (0.0-12.0) % Eosinophils % (0.00-5.0) % Basophils % (0.0-0.4) % Absolute Granulocytes (1.4-6.9) Basophils # (0-0.4) Sodium 142 (137-145) mmol/L Potassium 3.9 (3.5-5.1) mmol/L Chloride 107 (98-107) mmol/L Carbon Dioxide 28 (22-30) mmol/L Anion Gap 11.6 (5-15) MEQ/L BUN 11 (7-17) mg/dL Creatinine 0.70 (0.52-1.04) mg/dL Estimated GFR > 60.0 ML/MIN Glucose 81 (74-106) mg/dL Calcium 9.5 (8.4-10.2) mg/dL Total Bilirubin 0.50 (0.2-1.3) mg/dL AST 17 (14-36) U/L ALT 10 (0-35) U/L Alkaline Phosphatase 52 (38-126) U/L Serum Total Protein 7.4 (6.3-8.2) g/dL Albumin 4.6 (3.5-5.0) g/dL Urine Color YELLOW (YELLOW) Urine Appearance SLIGHTLY CLOUDY (CLEAR) Urine pH 6.0 (5-6) Ur Specific Gerry 1.008 (1.005-1.025) Urine Protein NEGATIVE (Negative) Urine Ketones NEGATIVE (NEGATIVE) Urine Blood NEGATIVE (0-5) Lemuel/ul Urine Nitrite NEGATIVE (NEGATIVE) Urine Bilirubin NEGATIVE (NEGATIVE) Urine Urobilinogen NEGATIVE (0-1) mg/dL Ur Leukocyte Esterase NEGATIVE (NEGATIVE) Urine WBC (Auto) 0-2 (0-5) /HPF Urine RBC (Auto) NONE (0-2) /HPF U Epithel Cells (Auto) RARE (FEW) /HPF Urine Bacteria (Auto) NONE (NEGATIVE) /HPF Urine Mucus (Auto) SLIGHT (NEGATIVE) /HPF Urine Culture Reflexed NO (NO) Urine Glucose NEGATIVE (NEGATIVE) mg/dL Urine Opiates Level NEGATIVE (NEGATIVE) Ur Methadone NEGATIVE (NEGATIVE) Urine Barbiturates NEGATIVE (NEGATIVE) Ur Phencyclidine (PCP) NEGATIVE (NEGATIVE) Urine Amphetamine NEGATIVE (NEGATIVE) U Benzodiazepine Level NEGATIVE (NEGATIVE) Urine Cocaine NEGATIVE (NEGATIVE) Urine Marijuana (THC) NEGATIVE (NEGATIVE) Ethyl Alcohol < 10 (0-10) mg/dL 08/22/18 Range/Units 12:46 WBC 5.5 (4.0-10.5) K/mm3 RBC 5.31 (4.1-5.4) M/mm3 Hgb 16.6 H (12.0-16.0) gm/dl Hct 50.5 H (35-47) % MCV 95.1 (78-100) fl MCH 31.2 (26-32) pg MCHC 32.9 (32-36) g/dl RDW 12.9 (11.5-14.0) % Plt Count 225 (150-450) K/mm3 MPV 11.0 H (6-9.5) fl Gran % 54.3 (36.0-66.0) % Eos # (Auto) 0.33 (0-0.5) Absolute Lymphs (auto) 1.82 (1.0-4.6) Absolute Monos (auto) 0.35 (0.0-1.3) Lymphocytes % 32.9 (24.0-44.0) % Monocytes % 6.3 (0.0-12.0) % Eosinophils % 6.0 H (0.00-5.0) % Basophils % 0.5 (0.0-0.4) % Absolute Granulocytes 3.01 (1.4-6.9) Basophils # 0.03 (0-0.4) Sodium (137-145) mmol/L Potassium (3.5-5.1) mmol/L Chloride (98-107) mmol/L Carbon Dioxide (22-30) mmol/L Anion Gap (5-15) MEQ/L BUN (7-17) mg/dL Creatinine (0.52-1.04) mg/dL Estimated GFR ML/MIN Glucose (74-106) mg/dL Calcium (8.4-10.2) mg/dL Total Bilirubin (0.2-1.3) mg/dL AST (14-36) U/L ALT (0-35) U/L Alkaline Phosphatase (38-126) U/L Serum Total Protein (6.3-8.2) g/dL Albumin (3.5-5.0) g/dL Urine Color (YELLOW) Urine Appearance (CLEAR) Urine pH (5-6) Ur Specific Gerry (1.005-1.025) Urine Protein (Negative) Urine Ketones (NEGATIVE) Urine Blood (0-5) Lemuel/ul Urine Nitrite (NEGATIVE) Urine Bilirubin (NEGATIVE) Urine Urobilinogen (0-1) mg/dL Ur Leukocyte Esterase (NEGATIVE) Urine WBC (Auto) (0-5) /HPF Urine RBC (Auto) (0-2) /HPF U Epithel Cells (Auto) (FEW) /HPF Urine Bacteria (Auto) (NEGATIVE) /HPF Urine Mucus (Auto) (NEGATIVE) /HPF Urine Culture Reflexed (NO) Urine Glucose (NEGATIVE) mg/dL Urine Opiates Level (NEGATIVE) Ur Methadone (NEGATIVE) Urine Barbiturates (NEGATIVE) Ur Phencyclidine (PCP) (NEGATIVE) Urine Amphetamine (NEGATIVE) U Benzodiazepine Level (NEGATIVE) Urine Cocaine (NEGATIVE) Urine Marijuana (THC) (NEGATIVE) Ethyl Alcohol (0-10) mg/dL - Progress Progress: improved, re-examined Counseled pt/family regarding: lab results, diagnosis, need for follow-up, rad results - Departure Time of Disposition: 14:12 Departure Disposition: Home Clinical Impression: Seizure Condition: Stable Critical Care Time: No Referrals: MARK NICOLE [Primary Care Provider] - Additional Instructions: take your dilantin and other medications as prescribed. call your neurologist today to let them know of the negative ED work up. keep your appointment on Tuesday08/28/18 unless you obtain an earlier appointment.
[2018-08-22 13:00] LABS: BASOPHIL % 0.5 % (0.0-0.4); Basophil (Absolute #) 0.03 (0-0.4); Eosinophil (Absolute #) 0.33 (0-0.5); Granulocyte Absolute (ANC) 3.01 (1.4-6.9); Granulocytes % 54.3 % (36.0-66.0); Hematocrit 50.5 % (35-47); Hemoglobin 16.6 gm/dl (12.0-16.0); Lymphocyte (Absolute #) 1.82 (1.0-4.6); Lymphocytes % 32.9 % (24.0-44.0); Mean Cell Volume 95.1 fl (78-100); Mean Corpuscular Hgb Concent. 32.9 g/dl (32-36); Monocyte (Absolute #) 0.35 (0.0-1.3); Monocytes % 6.3 % (0.0-12.0); Platelet Count 225 K/mm3 (150-450); Red Blood Count 5.31 M/mm3 (4.1-5.4); Red Cell Distribution Width 12.9 % (11.5-14.0); White Blood Count 5.5 K/mm3 (4.0-10.5)
[2018-08-22 13:04] LABS: Mean Corpuscular Hemoglobin 31.2 pg (26-32)
[2018-08-22 13:24] LABS: Appearance SLIGHTLY CLOUDY (CLEAR); Bilirubin NEGATIVE (NEGATIVE); Blood NEGATIVE Ery/ul (0-5); Glucose NEGATIVE (NEGATIVE); Ketones NEGATIVE (NEGATIVE); Leukocyte Esterase NEGATIVE (NEGATIVE); Nitrite NEGATIVE (NEGATIVE); Protein,Urine Dip NEGATIVE (Negative); Specific Gravity 1.008 (1.005-1.025); Urobilinogen NEGATIVE mg/dL (0-1)
--- NOTE | 2018-08-22 13:27 | XRAY ---
Indication: Confusion. Seizure. Multiple contiguous axial images obtained through the head without contrast. Comparison: January 08, 2016. Again normal appearing brain parenchyma, ventricles, and bony calvarium. Visualized paranasal sinuses and mastoid air cells are clear. Impression: Stable normal CT head without contrast exam. CTDI 70.80
[2018-08-22 13:35] LABS: Amphetamine,Urine NEGATIVE (NEGATIVE); Barbiturate,Urine NEGATIVE (NEGATIVE); Benzodiazepine,Urine NEGATIVE (NEGATIVE); Cocaine,Urine NEGATIVE (NEGATIVE); Methadone,Urine NEGATIVE (NEGATIVE); Opiate,Urine NEGATIVE (NEGATIVE); PCP,Urine NEGATIVE (NEGATIVE); THC,Urine NEGATIVE (NEGATIVE)
[2018-08-22 13:53] LABS: ALBUMIN 4.6 g/dL (3.5-5.0); ALKALINE PHOSPHATASE 52 U/L (38-126); ANION GAP 11.6 MEQ/L (5-15); BLOOD UREA NITROGEN 11 mg/dL (7-17); CHLORIDE 107 mmol/L (98-107); Calcium 9.5 mg/dL (8.4-10.2); Carbon Dioxide 28 mmol/L (22-30); Glucose 81 mg/dL (74-106); Potassium 3.9 mmol/L (3.5-5.1); SGOT/AST 17 U/L (14-36); SGPT/ALT 10 U/L (0-35); SODIUM 142 mmol/L (137-145); Total Protein 7.4 g/dL (6.3-8.2)
[2018-08-22 14:03] VITALS: BP 114/79; PULSE 75
[2018-08-22 14:07] LABS: ETHYL ALCOHOL < 10 mg/dL (0-10)
[2018-08-22 14:14] VITALS: O2SAT 100
== END 2018-08-22 14:26 | disposition home or self-care (01) ==
LOC: ED 11:42
DX: R56.9 Unspecified convulsions (principal); Z79.899 Other long term (current) drug therapy
CPT/HCPCS: 36000; 36415; 70450; 80053; 80307; 81001; 85025; 99284; G0480

== ENCOUNTER 2019-03-27 17:44 | Emergency (ER) | payer OTHER ==
[2019-03-27] MEDS ORDERED: Sodium Chloride 0.9% 1000 ML 1,000 ML IV STA (17:53)
[2019-03-27] MEDS ORDERED: Zofran 4 MG/2 ML VIAL IV ONE (17:53)
[2019-03-27] MEDS ORDERED: Zofran 4 MG/2 ML VIAL ONE (18:08)
[2019-03-27] MEDS ORDERED: Sodium Chloride 0.9% 1000 ML 1,000 ML ONE (18:08)
--- NOTE | 2019-03-27 18:10 | ERPHSYRPT ---
- History of Present Illness Source: patient Exam Limitations: no limitations Timing/Duration: yesterday Severity: moderate Modifying Factors: Improves With: rest Associated Symptoms: nausea, vomiting Hx Tetanus, Diphtheria Vaccination/Date Given: No Hx Influenza Vaccination/Date Given: No Hx Pneumococcal Vaccination/Date Given: No <KEVIN RICHMOND - Last Filed: 03/27/19 18:58> <CARLOSMILDRED ROMEO - Last Filed: 03/27/19 20:00> - History of Present Illness Physician History: Pt is a 38 y/o female that presented to the ED with N/V and dehydration. Pt started Cymbalta yesterday, and she started vomiting yesterday yesterday, and not able to get anything in. Pt states, some diarrhea, but no abdominal pain. Pt denies LOC, no SOB or cough. No chest pain or palpitations. She did not urinate through the day, but she denies dysuria, frequency and urgency. ( KEVIN RICHMOND) Allergies/Adverse Reactions: nut - unspecified Allergy (Severe, Verified 03/27/19 17:56) Swelling of Tongue and Lips hydromorphone HCl [From Dilaudid] Allergy (Verified 03/27/19 17:56) Shortness of Breath Latex, Natural Rubber Allergy (Verified 03/27/19 17:56) meperidine [From Demerol] Allergy (Verified 03/27/19 17:56) Swelling of Tongue and Lips Penicillins Allergy (Verified 03/27/19 17:56) peanuts Allergy (Severe, Uncoded 08/22/18 12:05) Swelling of Tongue and Lips Tongue and throat swells and difficulty breathing Home Medications: Omeprazole 40 mg PO DAILY 04/20/18 [History] Famotidine 40 mg PO DAILY 07/31/18 [History] Atorvastatin Calcium [Lipitor] 10 mg PO DAILY 03/27/19 [History] Duloxetine HCl [Cymbalta] 60 mg PO DAILY 03/27/19 [History] Eslicarbazepine Acetate [Aptiom] 600 mg PO DAILY 03/27/19 [History] Gabapentin [Neurontin] 300 mg PO BID 03/27/19 [History] - Review of Systems Constitutional: Lethargy, Malaise Eyes: No Symptoms Ears, Nose, & Throat: No Symptoms Respiratory: No Cough, No Dyspnea Cardiac: No Chest Pain, No Edema, No Syncope Abdominal/Gastrointestinal: Nausea, Vomiting, Diarrhea Genitourinary Symptoms: No Dysuria Musculoskeletal: No Back Pain, No Neck Pain Neurological: No Dizziness, No Focal Weakness, No Sensory Changes <KEVIN RICHMOND - Last Filed: 03/27/19 18:58> - Past Medical History Pertinent Past Medical History: Yes Neurological History: Migraines ENT History: No Pertinent History Cardiac History: Other Respiratory History: Asthma Endocrine Medical History: Other Musculoskeletal History: Fibromyalgia GI Medical History: No Pertinent History History: No Pertinent History Psycho-Social History: Depression Female Reproductive Disorders: Fibroids Other Medical History: heart stop after child apr 2000,. pcos,. osteopenia,. Pituitary adeanoma - Past Surgical History Past Surgical History: Yes Neuro Surgical History: No Pertinent History Cardiac: No Pertinent History Respiratory: No Pertinent History Gastrointestinal: No Pertinent History Genitourinary: No Pertinent History Musculoskeletal: No Pertinent History Female Surgical History: Hysterectomy, Section, Tubal Ligation Other Surgical History: egd 2013, x 2 and tubal ligation. pt and family state difficult to awaken from general anesthesia - Social History Smoking Status: Current every day smoker How long have you smoked: 15 years Exposure to second hand smoke: Yes Drug Use: none Patient Lives Alone: No <KEVIN RICHMOND - Last Filed: 03/27/19 18:58> - Physical Exam General Appearance: mild distress Eye Exam: PERRL/EOMI, eyes nml inspection Ears, Nose, Throat Exam: normal ENT inspection, TMs normal, pharynx normal, moist mucous membranes Neck Exam: normal inspection, non-tender, supple, full range of motion Respiratory Exam: normal breath sounds, lungs clear, No respiratory distress Cardiovascular Exam: regular rate/rhythm, normal heart sounds, normal peripheral pulses Gastrointestinal/Abdomen Exam: soft, normal bowel sounds, No tenderness, No mass Back Exam: normal inspection, normal range of motion, No CVA tenderness, No vertebral tenderness Extremity Exam: normal inspection, normal range of motion, pelvis stable Neurologic Exam: alert, 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, cooperative, normal mood/affect, nml cerebellar function, nml station & gait, sensation nml, No motor deficits <KEVIN RICHMOND - Last Filed: 03/27/19 18:58> - Nursing Vital Signs Nursing Vital Signs: Initial Vital Signs Temperature 98.1 F 03/27/19 17:52 Pulse Rate 82 03/27/19 17:52 Respiratory Rate 16 03/27/19 17:52 Blood Pressure 125/78 03/27/19 17:52 O2 Sat by Pulse Oximetry 98 03/27/19 17:52 Pain Scale Pain Intensity 0 - Course Nursing assessment & vital signs reviewed: Yes <KEVIN RICHMOND - Last Filed: 03/27/19 18:58> Ordered Tests: Active Orders 24 hr Category Date Time Status Orthostatic Vital Signs STAT Care 03/27/19 19:45 Active CBC W DIFF Stat Lab 03/27/19 18:10 Completed CMP Stat Lab 03/27/19 18:10 Completed UA W/RFX UR CULTURE Stat Lab 03/27/19 19:14 Completed Medication Summary Discontinued Medications Generic Name Dose Route Start Last Admin Trade Name Geraldq PRN Reason Stop Dose Admin Diphenhydramine HCl Confirm 03/27/19 18:25 Benadryl 25 Mg Capsule Administered 03/27/19 18:26 Dose 50 mg .ROUTE .STK-MED ONE Diphenhydramine HCl 50 mg 03/27/19 18:32 03/27/19 18:34 Benadryl 25 Mg Capsule PO 03/27/19 18:33 50 mg STAT ONE Administration Sodium Chloride 1,000 mls @ 999 mls/hr 03/27/19 17:53 03/27/19 18:15 Sodium Chloride 0.9% 1000 Ml IV 03/27/19 18:53 999 mls/hr .Q1H1M STA Administration Sodium Chloride Confirm 03/27/19 18:08 Sodium Chloride 0.9% 1000 Ml Administered 03/27/19 18:09 Dose 1,000 mls @ ud .ROUTE .STK-MED ONE Ondansetron HCl 4 mg 03/27/19 17:53 03/27/19 18:16 Zofran 4 Mg/2 Ml Vial IV 03/27/19 17:54 4 mg STAT ONE Administration Ondansetron HCl Confirm 03/27/19 18:08 Zofran 4 Mg/2 Ml Vial Administered 03/27/19 18:09 Dose 4 mg .ROUTE .STK-MED ONE Lab/Rad Data: Laboratory Result Diagrams 03/27/19 18:10 03/27/19 18:10 Laboratory Results 03/27/19 03/27/19 03/27/19 Range/Units 19:14 18:10 18:10 WBC 6.4 (4.0-10.5) K/mm3 RBC 4.60 (4.1-5.4) M/mm3 Hgb 15.1 (12.0-16.0) gm/dl Hct 43.2 (35-47) % MCV 93.9 (78-100) fl MCH 32.8 H (26-32) pg MCHC 35.0 (32-36) g/dl RDW 12.9 (11.5-14.0) % Plt Count 204 (150-450) K/mm3 MPV 10.3 H (6-9.5) fl Gran % 66.7 H (36.0-66.0) % Eos # (Auto) 0.14 (0-0.5) Absolute Lymphs (auto) 1.52 (1.0-4.6) Absolute Monos (auto) 0.44 (0.0-1.3) Lymphocytes % 23.9 L (24.0-44.0) % Monocytes % 6.9 (0.0-12.0) % Eosinophils % 2.2 (0.00-5.0) % Basophils % 0.3 (0.0-0.4) % Absolute Granulocytes 4.23 (1.4-6.9) Basophils # 0.02 (0-0.4) Sodium 138 (137-145) mmol/L Potassium 3.7 (3.5-5.1) mmol/L Chloride 106 (98-107) mmol/L Carbon Dioxide 23 (22-30) mmol/L Anion Gap 13.1 (5-15) MEQ/L BUN 9 (7-17) mg/dL Creatinine 0.70 (0.52-1.04) mg/dL Estimated GFR > 60.0 ML/MIN Glucose 96 (74-106) mg/dL Calcium 9.9 (8.4-10.2) mg/dL Total Bilirubin 1.00 (0.2-1.3) mg/dL AST 22 (14-36) U/L ALT 10 (0-35) U/L Alkaline Phosphatase 58 (38-126) U/L Serum Total Protein 7.9 (6.3-8.2) g/dL Albumin 4.8 (3.5-5.0) g/dL Urine Color STRAW (YELLOW) Urine Appearance CLEAR (CLEAR) Urine pH 7.0 (5-6) Ur Specific [place] 1.003 (1.005-1.025) Urine Protein NEGATIVE (Negative) Urine Ketones NEGATIVE (NEGATIVE) Urine Blood NEGATIVE (0-5) Lemuel/ul Urine Nitrite NEGATIVE (NEGATIVE) Urine Bilirubin NEGATIVE (NEGATIVE) Urine Urobilinogen NEGATIVE (0-1) mg/dL Ur Leukocyte Esterase NEGATIVE (NEGATIVE) Urine WBC (Auto) 0-2 (0-5) /HPF Urine RBC (Auto) NONE (0-2) /HPF U Epithel Cells (Auto) RARE (FEW) /HPF Urine Bacteria (Auto) RARE (NEGATIVE) /HPF Urine Mucus (Auto) SLIGHT (NEGATIVE) /HPF Urine Culture Reflexed NO (NO) Urine Glucose NEGATIVE (NEGATIVE) mg/dL <KEVIN RICHMOND - Last Filed: 03/27/19 18:58> - Progress Progress: improved <MILDRED GONZALEZ - Last Filed: 03/27/19 20:00> - Progress Progress Note: 03/27/19 18:10 Pt was seen and examined. She denies any discomfort. Labs were ordered, including UA. IVF bolus were ordered. (KEVIN RICHMOND) 03/27/19 19:50 Patient feeling better complained of itching after zofran, was given iv normal saline and benadryl by dr Richmond. normal neurologic exam vitals stable Pe Heent wnl eyes PERRLA Eomi fundi unremarkable ears tm's cornelius, intact bilaterally heart RRR without murmer lungs cta, equal bilaterally abd soft non-tender, positive bowel sounds negative hepato spleno megaly no rebound. extremities full rom pulses equal 2/4 neuro alert 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 cn 2-12 intact dtr's equal 2/4 gcs = 15 full rom all extremities , sensation intact all extremities speech normal orthostatic vital signs normal labs ua wnl. chemstry normal , cbc wnl, impression : nausea and vomiting, 03/27/19 20:00 (MILDRED GONZALEZ) <KEVIN RICHMOND - Last Filed: 03/27/19 18:58> - Departure Departure Disposition: Home Critical Care Time: No <MILDRED GONZALEZ - Last Filed: 03/27/19 20:00> - Departure Clinical Impression: Weakness Vomiting Qualifiers: Vomiting type: unspecified Vomiting Intractability: non-intractable Nausea presence: with nausea Qualified Code(s): R11.2 - Nausea with vomiting, unspecified Condition: Fair Referrals: MARK NICOLE [Primary Care Provider] - Additional Instructions: Return home, plenty of fluids, clear fluids only 24 -48 hours if nausea, vomiting or abdominal pain Phenergan as prescribed . Follow up with your family doctor. Return for acute distress, severe symptoms or for any problem. Prescriptions: Promethazine HCl 25 mg [Phenergan 25 mg] 25 mg PO Q4-6HPRN PRN #12 tablet PRN Reason: nausea and vomiting
[2019-03-27 18:14] LABS: BASOPHIL % 0.3 % (0.0-0.4); Basophil (Absolute #) 0.02 (0-0.4); Eosinophil % 2.2 % (0.00-5.0); Eosinophil (Absolute #) 0.14 (0-0.5); Granulocyte Absolute (ANC) 4.23 (1.4-6.9); Granulocytes % 66.7 % (36.0-66.0); Hematocrit 43.2 % (35-47); Hemoglobin 15.1 gm/dl (12.0-16.0); Lymphocyte (Absolute #) 1.52 (1.0-4.6); Lymphocytes % 23.9 % (24.0-44.0); Mean Cell Volume 93.9 fl (78-100); Mean Corpuscular Hemoglobin 32.8 pg (26-32); Mean Platelet Volume 10.3 fl (6-9.5); Monocyte (Absolute #) 0.44 (0.0-1.3); Monocytes % 6.9 % (0.0-12.0); Platelet Count 204 K/mm3 (150-450); Red Cell Distribution Width 12.9 % (11.5-14.0); White Blood Count 6.4 K/mm3 (4.0-10.5)
[2019-03-27] MEDS ORDERED: BENADRYL 25 MG CAPSULE ONE (18:25)
[2019-03-27] MEDS ORDERED: BENADRYL 25 MG CAPSULE PO ONE (18:32)
[2019-03-27 18:44] LABS: ALBUMIN 4.8 g/dL (3.5-5.0); ALKALINE PHOSPHATASE 58 U/L (38-126); ANION GAP 13.1 MEQ/L (5-15); BLOOD UREA NITROGEN 9 mg/dL (7-17); CHLORIDE 106 mmol/L (98-107); Calcium 9.9 mg/dL (8.4-10.2); Carbon Dioxide 23 mmol/L (22-30); Glucose 96 mg/dL (74-106); Potassium 3.7 mmol/L (3.5-5.1); SGOT/AST 22 U/L (14-36); SGPT/ALT 10 U/L (0-35); SODIUM 138 mmol/L (137-145); Total Protein 7.9 g/dL (6.3-8.2)
[2019-03-27 19:25] LABS: Appearance CLEAR (CLEAR); Bacteria RARE /HPF (NEGATIVE); Bilirubin NEGATIVE (NEGATIVE); Blood NEGATIVE Ery/ul (0-5); Epithelial Cells RARE /HPF (FEW); Glucose NEGATIVE (NEGATIVE); Ketones NEGATIVE (NEGATIVE); Leukocyte Esterase NEGATIVE (NEGATIVE); Mucus SLIGHT /HPF (NEGATIVE); Nitrite NEGATIVE (NEGATIVE); Protein,Urine Dip NEGATIVE (Negative); Specific Gravity 1.003 (1.005-1.025); Urobilinogen NEGATIVE mg/dL (0-1); WBC 0-2 /HPF (0-5)
[2019-03-27 19:56] VITALS: BP 112/65; PULSE 64; O2SAT 99
== END 2019-03-27 20:08 | disposition home or self-care (01) ==
LOC: ED 17:44
DX: R11.2 Nausea with vomiting, unspecified (principal)
CPT/HCPCS: 36000; 36415; 80053; 81001; 85025; 96360; 96374; 99284; J2405; A9270-GY

== ENCOUNTER 2019-04-17 19:34 | Emergency (ER) | payer OTHER ==
--- NOTE | 2019-04-17 20:28 | ERPHSYRPT ---
- History of Present Illness Time Seen by Provider: 04/17/19 20:10 Source: patient Exam Limitations: no limitations Patient Subjective Stated Complaint: pt states her dogs knocked her down in the driveway. states she landed on her rt hip and rt elbow. c/o pain in rt thigh and hip, rt elbow, bilat ankles. Triage Nursing Assessment: pt alert and oriented, answers questions approp. pt ambulatory with slow limping gait noted. refuses offer of wheelchair to exam room. tenderness noted to rt ankle, rt thigh, rt elbow with light palpation. bruising to rt lateral thigh, abrasion to rt lateral ankle. pedal pulses, cap refill bilat wnl. Physician History: 38-year-old white female arrives with complaint of pain in her right wrist pain in her right proximal femur, pain in her right proximal leg right ankle and right foot, With minimal pain in her left ankle. Patient states she was knocked down by her dog yesterday she said that he hit her from behind. She has the above noted complaints. Past medical history includes migraines, seizures, asthma, fibroids, depression , apparently her heart stopped after childbirth and 2000, polycystic ovary disease, osteoporosis, pituitary adenoma focal seizures Past surgical history includes hysterectomy, , tubal ligation, EGD, tubal ligation Social history positive tobacco use denies alcohol or illicit drug use. Timing/Duration: yesterday Severity: moderate Modifying Factors: Improves With: nothing Associated Symptoms: No nausea, No vomiting, No abdominal pain, No shortness of breath, No heartburn, No diaphoresis, No cough, No chills, No chest pain, No fever, No headaches, No loss of appetite, No malaise, No rash, No syncope, No seizure, No weakness Allergies/Adverse Reactions: nut - unspecified Allergy (Severe, Verified 04/17/19 19:54) Swelling of Tongue and Lips hydromorphone HCl [From Dilaudid] Allergy (Verified 04/17/19 19:54) Shortness of Breath Latex, Natural Rubber Allergy (Verified 04/17/19 19:54) meperidine [From Demerol] Allergy (Verified 04/17/19 19:54) Swelling of Tongue and Lips Penicillins Allergy (Verified 04/17/19 19:54) peanuts Allergy (Severe, Uncoded 04/17/19 19:54) Swelling of Tongue and Lips Tongue and throat swells and difficulty breathing Home Medications: Omeprazole 40 mg PO DAILY 04/20/18 [History] Famotidine 40 mg PO DAILY 07/31/18 [History] Atorvastatin Calcium [Lipitor] 10 mg PO DAILY 03/27/19 [History] Duloxetine HCl [Cymbalta] 60 mg PO DAILY 03/27/19 [History] Gabapentin [Neurontin] 300 mg PO BID 03/27/19 [History] Eletriptan HBr 40 mg PO BID PRN 04/17/19 [History] Lacosamide [Vimpat] 200 mg PO BID 04/17/19 [History] Hx Tetanus, Diphtheria Vaccination/Date Given: Yes (2015) Hx Influenza Vaccination/Date Given: No Hx Pneumococcal Vaccination/Date Given: No Immunizations Up to Date: Yes - Review of Systems Constitutional: No Fever, No Chills Eyes: No Symptoms Ears, Nose, & Throat: No Symptoms Respiratory: No Cough, No Dyspnea Cardiac: No Chest Pain, No Edema, No Syncope Abdominal/Gastrointestinal: No Abdominal Pain, No Nausea, No Vomiting, No Diarrhea Genitourinary Symptoms: No Dysuria Musculoskeletal: Injury (knocked down by her dog's yesterday), Other (pain right foot, right ankle, right leg, right thigh right wrist,minimal pain left ankle) Skin: Other (few abrasions right foot) Neurological: No Dizziness, No Focal Weakness, No Sensory Changes Psychological: No Symptoms Endocrine: No Symptoms All Other Systems: Reviewed and Negative - Past Medical History Pertinent Past Medical History: Yes Neurological History: Migraines, Seizures ENT History: No Pertinent History Cardiac History: Other Respiratory History: Asthma Endocrine Medical History: Other Musculoskeletal History: Fibromyalgia GI Medical History: No Pertinent History History: No Pertinent History Psycho-Social History: Depression Female Reproductive Disorders: Fibroids Other Medical History: heart stop after child apr 2000,. pcos,. osteopenia,. Pituitary adeanoma. focal seizures - Past Surgical History Past Surgical History: Yes Neuro Surgical History: No Pertinent History Cardiac: No Pertinent History Respiratory: No Pertinent History Gastrointestinal: No Pertinent History Genitourinary: No Pertinent History Musculoskeletal: No Pertinent History Female Surgical History: Hysterectomy, Section, Tubal Ligation Other Surgical History: egd 2013, x 2 and tubal ligation. pt and family state difficult to awaken from general anesthesia - Social History Smoking Status: Current every day smoker How long have you smoked: 15 years Exposure to second hand smoke: Yes Drug Use: none Patient Lives Alone: No - Female History Hx Last Menstrual Period: hyster Hx Now: No - Nursing Vital Signs Nursing Vital Signs: Initial Vital Signs Temperature 98.1 F 04/17/19 19:42 Pulse Rate 80 04/17/19 19:42 Respiratory Rate 18 04/17/19 19:42 Blood Pressure 125/90 04/17/19 19:42 O2 Sat by Pulse Oximetry 99 04/17/19 19:42 Pain Scale Pain Intensity 7 - Physical Exam General Appearance: no apparent distress, alert Eye Exam: PERRL/EOMI, eyes nml inspection Ears, Nose, Throat Exam: normal ENT inspection, TMs normal, pharynx normal, moist mucous membranes Neck Exam: normal inspection, non-tender, supple, full range of motion Respiratory Exam: normal breath sounds, lungs clear, No respiratory distress Cardiovascular Exam: regular rate/rhythm, normal heart sounds, normal peripheral pulses, capillary refill <2 sec Gastrointestinal/Abdomen Exam: soft, normal bowel sounds, No tenderness, No mass Back Exam: normal inspection, normal range of motion, No CVA tenderness, No vertebral tenderness Extremity Exam: other (ppain with palpation and movement right thigh, right leg , right ankle. 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, normal mood/affect, nml cerebellar function, nml station & gait, sensation nml, No motor deficits Skin Exam: normal color, warm, dry, No rash SpO2 Interpretation: normal (99%) SpO2: 99 - Course Nursing assessment & vital signs reviewed: Yes - Radiology Exams Right Femur X-ray Interpretation: Interpreted by me (no fractures, no subluxation) Right Lower Leg X-ray Interpretation: Interpreted by me (no fractures, no subluxation) Right Foot X-ray Interpretation: Interpreted by me (no fractures no subluxation) Right Wrist X-ray Interpretation: Interpreted by me (no fractures no subluxation) Ordered Tests: Active Orders 24 hr Category Date Time Status FEMUR Stat Exams 04/17/19 20:21 Taken FOOT (MINIMUM 3 VIEWS) Stat Exams 04/17/19 20:21 Taken LOWER LEG Stat Exams 04/17/19 20:23 Taken WRIST (MIN 3 VIEWS) Stat Exams 04/17/19 20:21 Taken - Progress Progress: improved Progress Note: 04/17/19 21:51 X-ray right wrist right femur right leg right foot all negative (my read). Will place the right wristlet in an air cast on the right ankle patient to take Tylenol and Motrin as needed for pain. - Departure Departure Disposition: Home Clinical Impression: Contusion of right hip Qualifiers: Encounter type: initial encounter Qualified Code(s): S70.01XA - Contusion of right hip, initial encounter Strain of right wrist Qualifiers: Encounter type: initial encounter Qualified Code(s): S66.911A - Strain of unspecified muscle, fascia and tendon at wrist and hand level, right hand, initial encounter Right ankle strain Qualifiers: Encounter type: initial encounter Qualified Code(s): S96.911A - Strain of unspecified muscle and tendon at ankle and foot level, right foot, initial encounter Condition: Fair Critical Care Time: No Referrals: MARK NICOLE [Primary Care Provider] - Additional Instructions: Return home. Ice to contused areas, right wrist, right ankle 24-48 hours. Tylenol every 4 hours or Motrin every 6 hours as needed for pain. Followup with your family DrTrish if symptoms are worse, no better in 48 hours, or persist longer than one week. Return for acute distress or for severe symptoms. Your x-rays have been preliminarily read they will be reread tomorrow you will be contacted if any discrepancies are noted.
[2019-04-17 22:22] VITALS: BP 122/70; PULSE 76; O2SAT 98
--- NOTE | 2019-04-18 08:46 | XRAY ---
Indication: Pain following fall. Comparison: None 3 views of the right wrist obtained. No bony, articular, or soft tissue abnormalities.
--- NOTE | 2019-04-18 08:48 | XRAY ---
Indication: Pain following fall. Comparison: None 3 nonweightbearing views of the right foot demonstrates tiny medial and lateral midfoot accessory ossicles. No other bony, articular, or soft tissue abnormalities.
--- NOTE | 2019-04-18 08:48 | XRAY ---
Indication: Pain following fall. Comparison: None 2 views of the right lower leg obtained. No bony, articular, or soft tissue abnormalities.
--- NOTE | 2019-04-18 08:56 | XRAY ---
Indication: Pain following fall. Comparison: None 2 views of the right femur obtained. No bony, articular, or soft tissue abnormalities.
== END 2019-04-17 22:23 | disposition home or self-care (01) ==
LOC: ED 19:34
DX: S70.01XA Contusion of right hip, initial encounter (principal); S66.911A Strain of unspecified muscle, fascia and tendon at wrist and hand level, right hand, initial encounter; S96.911A Strain of unspecified muscle and tendon at ankle and foot level, right foot, initial encounter; S90.511A Abrasion, right ankle, initial encounter; W54.1XXA Struck by dog, initial encounter
CPT/HCPCS: 73110; 73552; 73590; 73630; 99284; L3908

== ENCOUNTER 2019-04-20 22:17 | Emergency (ER) | payer OTHER ==
[2019-04-20 22:57] VITALS: O2SAT 100
--- NOTE | 2019-04-20 23:10 | ERPHSYRPT ---
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 similar episode in 08/29. head and body shaking per daughter who witnessed seizure. pt states seizures occurring more often and lasting longer. 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 tuesday she had a seizure. pt sees a neurologist in [place]. her next appt is 04/25/19. pt states she took her medications as prescribed. Timing/Duration: today Severity: moderate Character of Deficits: none Deficits: no difficulties Baseline/Normal Cognition: alert 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 Current Cognition: alert 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 Baseline Gait: walks w/o assistance Associated Symptoms: confusion (after seiaure), seizures Allergies/Adverse Reactions: nut - unspecified Allergy (Severe, Verified 04/17/19 19:54) Swelling of Tongue and Lips hydromorphone HCl [From Dilaudid] Allergy (Verified 04/17/19 19:54) Shortness of Breath Latex, Natural Rubber Allergy (Verified 04/17/19 19:54) meperidine [From Demerol] Allergy (Verified 04/17/19 19:54) Swelling of Tongue and Lips Penicillins Allergy (Verified 04/17/19 19:54) peanuts Allergy (Severe, Uncoded 04/17/19 19:54) Swelling of Tongue and Lips Tongue and throat swells and difficulty breathing Home Medications: Omeprazole 40 mg PO DAILY 04/20/18 [History] Famotidine 40 mg PO DAILY 07/31/18 [History] Atorvastatin Calcium [Lipitor] 10 mg PO DAILY 03/27/19 [History] Duloxetine HCl [Cymbalta] 60 mg PO DAILY 03/27/19 [History] Gabapentin [Neurontin] 300 mg PO BID 03/27/19 [History] Eletriptan HBr 40 mg PO BID PRN 04/17/19 [History] Lacosamide [Vimpat] 200 mg PO BID 04/17/19 [History] Hx Tetanus, Diphtheria Vaccination/Date Given: Yes (2015) Hx Influenza Vaccination/Date Given: No Hx Pneumococcal Vaccination/Date Given: No - Review of Systems Constitutional: No Symptoms Eyes: No Symptoms Ears, Nose, & Throat: No Symptoms Respiratory: No Symptoms Cardiac: No Symptoms Abdominal/Gastrointestinal: No Symptoms Genitourinary Symptoms: No Symptoms Musculoskeletal: No Symptoms Skin: No Symptoms Neurological: Headache, Seizure Psychological: Anxiety Endocrine: No Symptoms Hematologic/Lymphatic: No Symptoms Immunological/Allergic: No Symptoms All Other Systems: Reviewed and Negative - Past Medical History Pertinent Past Medical History: Yes Neurological History: Migraines, Seizures ENT History: No Pertinent History Cardiac History: Other Respiratory History: Asthma Endocrine Medical History: Other Musculoskeletal History: Fibromyalgia GI Medical History: No Pertinent History History: No Pertinent History Psycho-Social History: Depression Female Reproductive Disorders: Fibroids Other Medical History: heart stop after child apr 2000,. pcos,. osteopenia,. Pituitary adeanoma. focal seizures - Past Surgical History Past Surgical History: Yes Neuro Surgical History: No Pertinent History Cardiac: No Pertinent History Respiratory: No Pertinent History Gastrointestinal: No Pertinent History Genitourinary: No Pertinent History Musculoskeletal: No Pertinent History Female Surgical History: Hysterectomy, Section, Tubal Ligation Other Surgical History: egd 2013, x 2 and tubal ligation. pt and family state difficult to awaken from general anesthesia - Social History Smoking Status: Current every day smoker How long have you smoked: 15 years Exposure to second hand smoke: Yes Drug Use: none Patient Lives Alone: No - Nursing Vital Signs Nursing Vital Signs: Initial Vital Signs Temperature 98.1 F 04/20/19 22:40 Pulse Rate 67 04/20/19 22:40 Respiratory Rate 17 04/20/19 22:40 Blood Pressure 153/82 04/20/19 22:40 O2 Sat by Pulse Oximetry 100 04/20/19 22:40 Pain Scale Pain Intensity 6 - Emmanuel Coma Scale Best Eye Response (Emmanuel): (4) open spontaneously Best Verbal Response ([place]): (5) oriented Best Motor Response (Emmanuel): (6) obeys commands [place] Total: 15 - Physical Exam General Appearance: anxiety, thin Eye Exam: bilateral eye: normal inspection, PERRL, EOMI Ears, Nose, Throat Exam: normal ENT inspection, moist mucous membranes Neck Exam: normal inspection, non-tender, supple, full range of motion Respiratory: normal breath sounds, lungs clear, airway intact, No chest tenderness, No respiratory distress Cardiovascular: regular rate/rhythm, normal heart sounds, normal peripheral pulses Gastrointestinal: soft, normal bowel sounds, No tenderness Pelvic Exam: not done Rectal Exam: not done Back Exam: normal inspection, normal range of motion, No CVA tenderness, No vertebral tenderness Mental Status: alert, 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, 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 Exam: normal hearing, normal speech, PERRL, tongue midline Coordination/Gait: normal finger to nose, normal gait, normal cerebellar function Motor/Sensory: no motor deficit, no sensory deficit, no pronator drift Skin Exam: normal color, warm, dry SpO2 Interpretation: normal SpO2: 100 O2 Delivery: Room Air - Course Nursing assessment & vital signs reviewed: Yes Ordered Tests: Active Orders 24 hr Category Date Time Status Clean Catch Urine Specimen STAT Care 04/20/19 23:12 Active HEAD WITHOUT CONTRAST [CT] Stat Exams 04/20/19 23:13 Taken CBC W DIFF Stat Lab 04/20/19 23:30 Completed CMP Stat Lab 04/20/19 23:30 Completed UA W/RFX UR CULTURE Stat Lab 04/20/19 23:30 Completed Urine Triage Profile Stat Lab 04/20/19 23:30 Completed Medication Summary Discontinued Medications Generic Name Dose Route Start Last Admin Trade Name Geraldq PRN Reason Stop Dose Admin Lorazepam 1 mg 04/20/19 23:12 04/20/19 23:28 Ativan 2 Mg/1 Ml Vial IM 04/20/19 23:13 1 mg STAT ONE Administration Lorazepam Confirm 04/20/19 23:27 Ativan 2 Mg/1 Ml Vial Administered 04/20/19 23:28 Dose 2 mg .ROUTE .[employer]-FOLUP ONE Lab/Rad Data: Laboratory Result Diagrams 04/20/19 23:30 04/20/19 23:30 Laboratory Results 04/20/19 04/20/19 04/20/19 Range/Units 23:30 23:30 23:30 WBC (4.0-10.5) K/mm3 RBC (4.1-5.4) M/mm3 Hgb (12.0-16.0) gm/dl Hct (35-47) % MCV (78-100) fl MCH (26-32) pg MCHC (32-36) g/dl RDW (11.5-14.0) % Plt Count (150-450) K/mm3 MPV (6-9.5) fl Gran % (36.0-66.0) % Eos # (Auto) (0-0.5) Absolute Lymphs (auto) (1.0-4.6) Absolute Monos (auto) (0.0-1.3) Lymphocytes % (24.0-44.0) % Monocytes % (0.0-12.0) % Eosinophils % (0.00-5.0) % Basophils % (0.0-0.4) % Absolute Granulocytes (1.4-6.9) Basophils # (0-0.4) Sodium 139 (137-145) mmol/L Potassium 3.6 (3.5-5.1) mmol/L Chloride 104 (98-107) mmol/L Carbon Dioxide 26 (22-30) mmol/L Anion Gap 12.9 (5-15) MEQ/L BUN 13 (7-17) mg/dL Creatinine 0.75 (0.52-1.04) mg/dL Estimated GFR > 60.0 ML/MIN Glucose 97 (74-106) mg/dL Calcium 9.6 (8.4-10.2) mg/dL Total Bilirubin 0.50 (0.2-1.3) mg/dL AST 16 (14-36) U/L ALT 10 (0-35) U/L Alkaline Phosphatase 55 (38-126) U/L Serum Total Protein 7.6 (6.3-8.2) g/dL Albumin 4.7 (3.5-5.0) g/dL Urine Color YELLOW (YELLOW) Urine Appearance CLEAR (CLEAR) Urine pH 6.0 (5-6) Ur Specific Eleanor 1.011 (1.005-1.025) Urine Protein NEGATIVE (Negative) Urine Ketones NEGATIVE (NEGATIVE) Urine Blood NEGATIVE (0-5) Lemuel/ul Urine Nitrite NEGATIVE (NEGATIVE) Urine Bilirubin NEGATIVE (NEGATIVE) Urine Urobilinogen NEGATIVE (0-1) mg/dL Ur Leukocyte Esterase NEGATIVE (NEGATIVE) Urine WBC (Auto) NONE (0-5) /HPF Urine RBC (Auto) NONE (0-2) /HPF U Epithel Cells (Auto) RARE (FEW) /HPF Urine Bacteria (Auto) NONE (NEGATIVE) /HPF Urine Mucus (Auto) SLIGHT (NEGATIVE) /HPF Urine Culture Reflexed NO (NO) Urine Glucose NEGATIVE (NEGATIVE) mg/dL Urine Opiates Level NEGATIVE (NEGATIVE) Ur Methadone NEGATIVE (NEGATIVE) Urine Barbiturates NEGATIVE (NEGATIVE) Ur Phencyclidine (PCP) NEGATIVE (NEGATIVE) Urine Amphetamine NEGATIVE (NEGATIVE) U Benzodiazepine Level NEGATIVE (NEGATIVE) Urine Cocaine NEGATIVE (NEGATIVE) Urine Marijuana (THC) NEGATIVE (NEGATIVE) 04/20/19 Range/Units 23:30 WBC 6.2 (4.0-10.5) K/mm3 RBC 4.46 (4.1-5.4) M/mm3 Hgb 14.1 (12.0-16.0) gm/dl Hct 41.7 (35-47) % MCV 93.5 (78-100) fl MCH 31.6 (26-32) pg MCHC 33.8 (32-36) g/dl RDW 12.7 (11.5-14.0) % Plt Count 194 (150-450) K/mm3 MPV 10.0 H (6-9.5) fl Gran % 63.4 (36.0-66.0) % Eos # (Auto) 0.16 (0-0.5) Absolute Lymphs (auto) 1.71 (1.0-4.6) Absolute Monos (auto) 0.37 (0.0-1.3) Lymphocytes % 27.7 (24.0-44.0) % Monocytes % 6.0 (0.0-12.0) % Eosinophils % 2.6 (0.00-5.0) % Basophils % 0.3 (0.0-0.4) % Absolute Granulocytes 3.91 (1.4-6.9) Basophils # 0.02 (0-0.4) Sodium (137-145) mmol/L Potassium (3.5-5.1) mmol/L Chloride (98-107) mmol/L Carbon Dioxide (22-30) mmol/L Anion Gap (5-15) MEQ/L BUN (7-17) mg/dL Creatinine (0.52-1.04) mg/dL Estimated GFR ML/MIN Glucose (74-106) mg/dL Calcium (8.4-10.2) mg/dL Total Bilirubin (0.2-1.3) mg/dL AST (14-36) U/L ALT (0-35) U/L Alkaline Phosphatase (38-126) U/L Serum Total Protein (6.3-8.2) g/dL Albumin (3.5-5.0) g/dL Urine Color (YELLOW) Urine Appearance (CLEAR) Urine pH (5-6) Ur Specific Eleanor (1.005-1.025) Urine Protein (Negative) Urine Ketones (NEGATIVE) Urine Blood (0-5) Lemuel/ul Urine Nitrite (NEGATIVE) Urine Bilirubin (NEGATIVE) Urine Urobilinogen (0-1) mg/dL Ur Leukocyte Esterase (NEGATIVE) Urine WBC (Auto) (0-5) /HPF Urine RBC (Auto) (0-2) /HPF U Epithel Cells (Auto) (FEW) /HPF Urine Bacteria (Auto) (NEGATIVE) /HPF Urine Mucus (Auto) (NEGATIVE) /HPF Urine Culture Reflexed (NO) Urine Glucose (NEGATIVE) mg/dL Urine Opiates Level (NEGATIVE) Ur Methadone (NEGATIVE) Urine Barbiturates (NEGATIVE) Ur Phencyclidine (PCP) (NEGATIVE) Urine Amphetamine (NEGATIVE) U Benzodiazepine Level (NEGATIVE) Urine Cocaine (NEGATIVE) Urine Marijuana (THC) (NEGATIVE) - Progress Progress: improved, re-examined Progress Note: 04/21/19 00:24 ct head-no acute process Counseled pt/family regarding: lab results, diagnosis, need for follow-up, rad results - Departure Departure Disposition: Home Clinical Impression: Seizure Condition: Stable Critical Care Time: No Referrals: MARK NICOLE [Primary Care Provider] - Additional Instructions: take your medications as prescribed. follow up with neurologist for further management
[2019-04-20] MEDS ORDERED: Ativan 2 MG/1 ML VIAL IM ONE (23:12)
[2019-04-20 23:25] VITALS: PULSE 64
[2019-04-20] MEDS ORDERED: Ativan 2 MG/1 ML VIAL ONE (23:27)
[2019-04-20 23:38] LABS: BASOPHIL % 0.3 % (0.0-0.4); Basophil (Absolute #) 0.02 (0-0.4); Eosinophil % 2.6 % (0.00-5.0); Eosinophil (Absolute #) 0.16 (0-0.5); Granulocyte Absolute (ANC) 3.91 (1.4-6.9); Granulocytes % 63.4 % (36.0-66.0); Hematocrit 41.7 % (35-47); Hemoglobin 14.1 gm/dl (12.0-16.0); Lymphocyte (Absolute #) 1.71 (1.0-4.6); Lymphocytes % 27.7 % (24.0-44.0); Mean Cell Volume 93.5 fl (78-100); Mean Corpuscular Hemoglobin 31.6 pg (26-32); Mean Corpuscular Hgb Concent. 33.8 g/dl (32-36); Monocyte (Absolute #) 0.37 (0.0-1.3); Platelet Count 194 K/mm3 (150-450); Red Blood Count 4.46 M/mm3 (4.1-5.4); Red Cell Distribution Width 12.7 % (11.5-14.0); White Blood Count 6.2 K/mm3 (4.0-10.5)
[2019-04-20 23:45] LABS: Appearance CLEAR (CLEAR); Bilirubin NEGATIVE (NEGATIVE); Blood NEGATIVE Ery/ul (0-5); Epithelial Cells RARE /HPF (FEW); Glucose NEGATIVE (NEGATIVE); Ketones NEGATIVE (NEGATIVE); Leukocyte Esterase NEGATIVE (NEGATIVE); Mucus SLIGHT /HPF (NEGATIVE); Nitrite NEGATIVE (NEGATIVE); Protein,Urine Dip NEGATIVE (Negative); Specific Gravity 1.011 (1.005-1.025); Urobilinogen NEGATIVE mg/dL (0-1)
[2019-04-20 23:57] LABS: ALBUMIN 4.7 g/dL (3.5-5.0); ALKALINE PHOSPHATASE 55 U/L (38-126); ANION GAP 12.9 MEQ/L (5-15); BLOOD UREA NITROGEN 13 mg/dL (7-17); CHLORIDE 104 mmol/L (98-107); Calcium 9.6 mg/dL (8.4-10.2); Carbon Dioxide 26 mmol/L (22-30); Creatinine 1 0.75 mg/dL (0.52-1.04); Glucose 97 mg/dL (74-106); Potassium 3.6 mmol/L (3.5-5.1); SGOT/AST 16 U/L (14-36); SGPT/ALT 10 U/L (0-35); SODIUM 139 mmol/L (137-145); Total Protein 7.6 g/dL (6.3-8.2)
[2019-04-20 23:58] LABS: Amphetamine,Urine NEGATIVE (NEGATIVE); Barbiturate,Urine NEGATIVE (NEGATIVE); Benzodiazepine,Urine NEGATIVE (NEGATIVE); Cocaine,Urine NEGATIVE (NEGATIVE); Methadone,Urine NEGATIVE (NEGATIVE); Opiate,Urine NEGATIVE (NEGATIVE); PCP,Urine NEGATIVE (NEGATIVE); THC,Urine NEGATIVE (NEGATIVE)
[2019-04-21 00:28] VITALS: BP 105/65
--- NOTE | 2019-04-21 09:13 | XRAY ---
Indication: Right headache. Seizure. No known injury. Multiple contiguous axial images obtained through the head without contrast. Comparison: August 22, 2018. Again normal appearing brain parenchyma, ventricles, and bony calvarium. Visualized paranasal sinuses and mastoid air cells are clear. Impression: Stable normal CT head without contrast exam. Comment: Preliminary interpretation was made by [facility]. No discrepancy. CTDI 52.13
== END 2019-04-21 00:33 | disposition home or self-care (01) ==
LOC: ED 22:17
DX: G40.909 Epilepsy, unspecified, not intractable, without status epilepticus (principal)
CPT/HCPCS: 36415; 70450; 80053; 80307; 81001; 85025; 96372; 99284; J2060

== ENCOUNTER 2019-11-25 22:14 | Emergency (ER) | payer OTHER ==
[2019-11-25] MEDS ORDERED: Sodium Chloride 0.9% 1000 ML 1,000 ML IV STA (22:58)
[2019-11-25] MEDS ORDERED: Phenergan 25 MG INJ IM ONE (22:58)
[2019-11-25] MEDS ORDERED: TORAdol 30 mg Injection IV ONE (22:58)
[2019-11-25] MEDS ORDERED: Reglan 10 MG/2 ML IV ONE (22:58)
[2019-11-25] MEDS ORDERED: TORAdol 30 mg Injection ONE ×2 (23:08→23:41)
[2019-11-25] MEDS ORDERED: Sodium Chloride 0.9% 1000 ML 0 ML ONE (23:08)
[2019-11-25] MEDS ORDERED: Phenergan 25 MG INJ ONE (23:08)
[2019-11-25] MEDS ORDERED: Reglan 10 MG/2 ML ONE (23:08)
[2019-11-25] MEDS ORDERED: TORAdol 30 mg Injection IM ONE (23:35)
[2019-11-25] MEDS ORDERED: Reglan 10 MG ONE (23:41)
--- NOTE | 2019-11-25 23:44 | ERPHSYRPT ---
- History of Present Illness Time Seen by Provider: 11/25/19 23:39 Source: patient, family Exam Limitations: no limitations Patient Subjective Stated Complaint: Migraine started 5 days ago. History of migraines. Medication not working this tme Triage Nursing Assessment: Pt alert & oriented. Ambulated to room with a steady gait and changed into gown. Respirations easy and non-labored. States lights and noises make it worse Physician History: pt is having headache similar in intensity and character to her usual migraine but has lasted for a few days and meds not working so she came in ; no trauma, no neuro deficits no abd pain but has vomiting as per usual with these; Timing/Duration: day(s), gradual onset Quality: fullness, throbbing Head Pain Location: global Severity of Pain-Max: moderate Severity of Pain-Current: moderate Recent Head Trauma: no recent headache/trauma, frequent headaches, chronic headaches, occasional headaches Associated Symptoms: nausea/vomiting, sensitive to light Previous symptoms: same symptoms as today, recently seen, recently treated Allergies/Adverse Reactions: hydromorphone HCl [From Dilaudid] Allergy (Verified 04/17/19 19:54) Shortness of Breath Latex, Natural Rubber Allergy (Verified 04/17/19 19:54) meperidine [From Demerol] Allergy (Verified 04/17/19 19:54) Swelling of Tongue and Lips Penicillins Allergy (Verified 04/17/19 19:54) Home Medications: Omeprazole 40 mg PO DAILY 04/20/18 [History] Famotidine 40 mg PO DAILY 07/31/18 [History] Atorvastatin Calcium [Lipitor] 10 mg PO DAILY 03/27/19 [History] Gabapentin [Neurontin] 300 mg PO BID 03/27/19 [History] Eletriptan HBr 40 mg PO BID PRN 04/17/19 [History] Lacosamide [Vimpat] 200 mg PO BID 04/17/19 [History] Hx Tetanus, Diphtheria Vaccination/Date Given: Yes (2015) Hx Influenza Vaccination/Date Given: No Hx Pneumococcal Vaccination/Date Given: No - Review of Systems Constitutional: No Fever, No Chills Eyes: No Symptoms Ears, Nose, & Throat: No Symptoms Respiratory: No Cough, No Dyspnea Cardiac: No Chest Pain, No Edema, No Syncope Abdominal/Gastrointestinal: Nausea, Vomiting, No Abdominal Pain, No Diarrhea Genitourinary Symptoms: No Dysuria Musculoskeletal: No Back Pain, No Neck Pain Skin: No Rash Neurological: Headache, No Dizziness, No Focal Weakness, No Sensory Changes Psychological: No Symptoms Endocrine: No Symptoms All Other Systems: Reviewed and Negative - Past Medical History Pertinent Past Medical History: Yes Neurological History: Migraines, Seizures ENT History: No Pertinent History Cardiac History: Other Respiratory History: Asthma Endocrine Medical History: Other Musculoskeletal History: Fibromyalgia GI Medical History: No Pertinent History History: No Pertinent History Psycho-Social History: Depression Female Reproductive Disorders: Fibroids Other Medical History: heart stop after child apr 2000,. pcos,. osteopenia,. Pituitary adeanoma. focal seizures - Past Surgical History Past Surgical History: Yes Neuro Surgical History: No Pertinent History Cardiac: No Pertinent History Respiratory: No Pertinent History Gastrointestinal: No Pertinent History Genitourinary: No Pertinent History Musculoskeletal: No Pertinent History Female Surgical History: Hysterectomy, Section, Tubal Ligation Other Surgical History: egd 2013, x 2 and tubal ligation. pt and family state difficult to awaken from general anesthesia - Social History Smoking Status: Current every day smoker How long have you smoked: 15 years Exposure to second hand smoke: Yes Drug Use: none Patient Lives Alone: No - Female History Hx Now: No - Nursing Vital Signs Nursing Vital Signs: Initial Vital Signs Temperature 98.3 F 11/25/19 22:21 Pulse Rate 76 11/25/19 22:21 Respiratory Rate 18 11/25/19 22:21 Blood Pressure 111/56 11/25/19 22:21 O2 Sat by Pulse Oximetry 100 11/25/19 22:21 Pain Scale Pain Intensity 8 - Physical Exam General Appearance: no apparent distress Eye Exam: PERRL/EOMI Ears, Nose, Throat Exam: normal ENT inspection, moist mucous membranes, other ( normal visual mckeon and fundi) Neck Exam: normal inspection, supple, full range of motion, No meningismus Respiratory Exam: normal breath sounds, lungs clear Cardiovascular Exam: regular rate/rhythm, normal heart sounds Gastrointestinal/Abdominal Exam: soft, No tenderness, No distention Back Exam: normal inspection, normal range of motion Mental Status Exam: alert, 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, 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 Exam: normal speech, PERRL, tongue midline, No facial droop Coordination/Gait Exam: normal cerebellar function Motor/Sensory Exam: no motor deficit, no sensory deficit, no pronator drift Skin Exam: normal color, warm, dry, No rash SpO2: 100 Procedures - Procedural Sedation Indication: other (headache control minimal ketamine protocol) Preparation: consent signed, previous anesthia/sedation without complications, procedure explained, pulse oximeter Sedation Parenteral: Ketamine, Other (minimal ketamine dosing for pain/headache control) Response during procedure: light sedation, handled secretions adequately, maintained airway well, oxygenation stable, vital signs stable Post-Procedure Response: return to baseline mental status, vital signs stable Progress: pt russell procedure well with good relief of headache pain after failure of other medications; airway was M-1 no problems by hx and none encountered - - Course Nursing assessment & vital signs reviewed: Yes Ordered Tests: Active Orders 24 hr Category Date Time Status Pulse Oximetry (ED) STAT Care 11/25/19 22:58 Active Medication Summary Generic Name Dose Route Start Last Admin Trade Name Freq PRN Reason Stop Dose Admin Metoclopramide HCl 10 mg 11/26/19 23:38 11/25/19 23:42 Reglan 10 Mg PO 11/26/19 23:39 10 mg STAT ONE Administration Discontinued Medications Generic Name Dose Route Start Last Admin Trade Name Freq PRN Reason Stop Dose Admin Sodium Chloride 1,000 mls @ 999 mls/hr 11/25/19 22:58 11/25/19 23:36 Sodium Chloride 0.9% 1000 Ml IV 11/25/19 23:58 Not Given .Q1H1M STA Sodium Chloride Confirm 11/25/19 23:08 Sodium Chloride 0.9% 1000 Ml Administered 11/25/19 23:09 Dose 1,000 mls @ ud .ROUTE .STK-MED ONE Ketamine HCl 5 mg 11/26/19 01:00 11/26/19 01:28 Ketamine Hcl 50 Mg/Ml IM 11/26/19 01:01 5 mg STAT ONE Administration Ketorolac Tromethamine 30 mg 11/25/19 22:58 11/25/19 23:12 Toradol 30 Mg Injection IV 11/25/19 22:59 Not Given STAT ONE Ketorolac Tromethamine Confirm 11/25/19 23:08 Toradol 30 Mg Injection Administered 11/25/19 23:09 Dose 30 mg .ROUTE .STK-MED ONE Ketorolac Tromethamine 60 mg 11/25/19 23:35 11/25/19 23:41 Toradol 30 Mg Injection IM 11/25/19 23:36 60 mg STAT ONE Administration Ketorolac Tromethamine Confirm 11/25/19 23:41 Toradol 30 Mg Injection Administered 11/25/19 23:42 Dose 30 mg .ROUTE .STK-MED ONE Metoclopramide HCl 10 mg 11/25/19 22:58 11/25/19 23:14 Reglan 10 Mg/2 Ml IV 11/25/19 22:59 Not Given STAT ONE Metoclopramide HCl Confirm 11/25/19 23:08 Reglan 10 Mg/2 Ml Administered 11/25/19 23:09 Dose 10 mg .ROUTE .STK-MED ONE Metoclopramide HCl Confirm 11/25/19 23:41 Reglan 10 Mg Administered 11/25/19 23:42 Dose 10 mg .ROUTE .STK-MED ONE Promethazine HCl 50 mg 11/25/19 22:58 11/25/19 23:12 Phenergan 25 Mg Inj IM 11/25/19 22:59 50 mg STAT ONE Administration Promethazine HCl Confirm 11/25/19 23:08 Phenergan 25 Mg Inj Administered 11/25/19 23:09 Dose 50 mg .ROUTE .STK-MED ONE - Progress Progress: improved, re-examined Air Movement: good Progress Note: 11/26/19 01:54 pt had good result with minimal ketamine protocol 0.1 mg/kg after failure of other modalities; 11/26/19 02:04 headache much improved after ketamine protocol - the hosp requires this to be under mod sedation protocol because of use of this particular med - but pt did not require critical care type support due to lack of potential side effects/ complications at that dose range; Blood Culture(s) Obtained: No Antibiotics given: No Counseled pt/family regarding: diagnosis, need for follow-up - Departure Departure Disposition: Home Clinical Impression: Chronic headache disorder Condition: Good Critical Care Time: No Referrals: MARK NICOLE [Primary Care Provider] - Instructions: Headache, Adult (DC) Additional Instructions: followup with your neurologist and PCP to adjust headache protocols - there are new modalities every 6 months or so that are discovered; return meantime if any further concerns . You have been treated with a light anesthetic agent - No driving or important decisions 24 hours .
[2019-11-26] MEDS ORDERED: Ketamine HCl 50 MG/ML IM ONE (01:00)
[2019-11-26 02:32] VITALS: BP 113/74; PULSE 67; O2SAT 98
[2019-11-26] MEDS ORDERED: Reglan 10 MG PO ONE (23:38)
== END 2019-11-26 02:20 | disposition home or self-care (01) ==
LOC: ED 22:14
DX: R51 Headache (principal); G89.29 Other chronic pain; R11.2 Nausea with vomiting, unspecified; Z79.899 Other long term (current) drug therapy
CPT/HCPCS: 94760; 96372; 96374; 99284; J1885; J2550; A9270-GY

== ENCOUNTER 2020-06-16 10:30 | Emergency (ER) | payer OTHER ==
--- NOTE | 2020-06-16 10:33 | ERPHSYRPT ---
- History of Present Illness Time Seen by Provider: 06/16/20 10:33 Historian: patient, family Exam Limitations: no limitations Physician History: This is a 40-year-old white female who has no known history of kidney stones or ureteral stones and presents with left flank pain that over the last 2 weeks has Kind of radiated around anteriorly. Yesterday the pain became worse and is associated with nausea. She has had no vomiting. She has had a hysterectomy in the past. She has had no diarrhea. Patient denies chest pain and she denies shortness of breath. Patient has never had anything like this before. Patient has no dysuria or hematuria. Timing/Duration: week(s) (2), worse (Yesterday) Quality: sharpness, stabbing Abdominal Pain Onset Location: flank (Left) Pain Radiation: LLQ Severity of Pain-Max: moderate Severity of Pain-Current: moderate Modifying Factors: Improves With: nothing Associated Symptoms: nausea, No chest pain, No shortness of breath, No vomiting Previous symptoms: no prior history Allergies/Adverse Reactions: hydromorphone HCl [From Dilaudid] Allergy (Verified 06/16/20 10:36) Shortness of Breath Latex, Natural Rubber Allergy (Verified 06/16/20 10:36) meperidine [From Demerol] Allergy (Verified 06/16/20 10:36) Swelling of Tongue and Lips Penicillins Allergy (Verified 06/16/20 10:36) Home Medications: Omeprazole 40 mg PO DAILY 04/20/18 [History] Atorvastatin Calcium [Lipitor] 40 mg PO DAILY 03/27/19 [History] Gabapentin [Neurontin] 300 mg PO BID 03/27/19 [History] Lacosamide [Vimpat] 200 mg PO BID 04/17/19 [History] Baclofen 10 mg [Lioresal 10 mg] 10 mg PO QID 06/16/20 [History] Hx Tetanus, Diphtheria Vaccination/Date Given: Yes (2015) Hx Influenza Vaccination/Date Given: No Hx Pneumococcal Vaccination/Date Given: No Travel Risk - International Travel Have you traveled outside of the country in past 3 weeks: No - Coronavirus Screening Are you exhibiting any of the following symptoms?: No Close contact with a COVID-19 positive Pt in past 14-21 Days: No - Review of Systems Constitutional: No Symptoms Eyes: No Symptoms Ears, Nose, & Throat: No Symptoms Respiratory: No Symptoms Cardiac: No Symptoms Abdominal/Gastrointestinal: Abdominal Pain (Left lower quadrant) Genitourinary Symptoms: Flank Pain (Left) Musculoskeletal: No Symptoms Skin: No Symptoms Neurological: No Symptoms Psychological: No Symptoms Endocrine: No Symptoms Hematologic/Lymphatic: No Symptoms Immunological/Allergic: No Symptoms All Other Systems: Reviewed and Negative - Past Medical History Pertinent Past Medical History: Yes Neurological History: Migraines, Seizures ENT History: No Pertinent History Cardiac History: Other Respiratory History: Asthma Endocrine Medical History: Other Musculoskeletal History: Fibromyalgia GI Medical History: No Pertinent History History: No Pertinent History Psycho-Social History: Depression Female Reproductive Disorders: Fibroids Other Medical History: heart stop after child apr 2000,. pcos,. osteopenia,. Pituitary adeanoma. focal seizures - Past Surgical History Past Surgical History: Yes Neuro Surgical History: No Pertinent History Cardiac: No Pertinent History Respiratory: No Pertinent History Gastrointestinal: No Pertinent History Genitourinary: No Pertinent History Musculoskeletal: No Pertinent History Female Surgical History: Hysterectomy, Section, Tubal Ligation Other Surgical History: egd 2013, x 2 and tubal ligation. pt and family state difficult to awaken from general anesthesia - Social History Smoking Status: Current every day smoker How long have you smoked: 15 years Exposure to second hand smoke: Yes Drug Use: none Patient Lives Alone: No - Nursing Vital Signs Nursing Vital Signs: Initial Vital Signs Temperature 98.4 F 06/16/20 10:38 Pulse Rate 85 06/16/20 10:38 Blood Pressure 114/76 06/16/20 10:38 O2 Sat by Pulse Oximetry 99 06/16/20 10:38 Pain Scale Pain Intensity 10 - Physical Exam General Appearance: mild distress, alert, anxiety, thin Eye Exam: PERRL/EOMI, eyes nml inspection Ears, Nose, Throat Exam: normal ENT inspection, moist mucous membranes Neck Exam: normal inspection, non-tender, supple, full range of motion Respiratory Exam: normal breath sounds, lungs clear, airway intact, No chest tenderness, No respiratory distress Cardiovascular Exam: regular rate/rhythm, normal heart sounds, normal peripheral pulses Gastrointestinal/Abdomen Exam: soft, normal bowel sounds, tenderness (Left lower quadrant), No guarding, No rebound Pelvic Exam: not done Rectal Exam: not done Back Exam: normal inspection, normal range of motion, CVA tenderness (Left), No vertebral tenderness Extremity Exam: normal inspection, normal range of motion, pelvis stable Neurologic Exam: alert, 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, cooperative, revenue integrity analyst II-XII nml as tested, normal mood/affect, nml cerebellar function, nml station & gait, sensation nml Skin Exam: normal color, warm, dry Lymphatic Exam: No adenopathy SpO2 Interpretation: normal O2 Delivery: Room Air Ordered Tests: Active Orders 24 hr Category Date Time Status IV Insertion STAT Care 06/16/20 11:00 Active ABDOMEN AND PELVIS W/0 CONTRAS [CT] Stat Exams 06/16/20 11:01 Completed AMYLASE Stat Lab 06/16/20 11:00 Completed CBC W DIFF Stat Lab 06/16/20 11:00 Completed CMP Stat Lab 06/16/20 11:00 Completed LIPASE Stat Lab 06/16/20 11:00 Completed Lactic Acid Stat Lab 06/16/20 11:39 Completed UA W/RFX UR CULTURE Stat Lab 06/16/20 11:12 Completed Medication Summary Discontinued Medications Generic Name Dose Route Start Last Admin Trade Name Freq PRN Reason Stop Dose Admin Sodium Chloride 1,000 mls @ 999 mls/hr 06/16/20 11:00 06/16/20 11:26 Sodium Chloride 0.9% 1000 Ml IV 06/16/20 12:00 Not Given .Q1H1M STA Sodium Chloride Confirm 06/16/20 11:05 Sodium Chloride 0.9% 1000 Ml Administered 06/16/20 11:06 Dose 1,000 mls @ ud .ROUTE .STK-MED ONE Ketorolac Tromethamine 30 mg 06/16/20 11:00 06/16/20 11:26 Toradol 30 Mg Injection IV 06/16/20 11:01 Not Given STAT ONE Ketorolac Tromethamine Confirm 06/16/20 11:05 Toradol 30 Mg Injection Administered 06/16/20 11:06 Dose 30 mg .ROUTE .STK-MED ONE Ketorolac Tromethamine 30 mg 06/16/20 11:27 06/16/20 11:46 Toradol 30 Mg Injection IM 06/16/20 11:28 30 mg STAT ONE Administration Ondansetron HCl 4 mg 06/16/20 11:00 06/16/20 11:26 Zofran 4 Mg/2 Ml Vial IV 10/05/20 11:01 Not Given STAT ONE Ondansetron HCl Confirm 06/16/20 11:05 Zofran 4 Mg/2 Ml Vial Administered 06/16/20 11:06 Dose 4 mg .ROUTE .STK-MED ONE Ondansetron HCl 4 mg 06/16/20 11:27 06/16/20 11:46 Zofran 4 Mg/2 Ml Vial IM 06/16/20 11:28 4 mg STAT ONE Administration Lab/Rad Data: Laboratory Result Diagrams 06/16/20 11:00 06/16/20 11:00 Laboratory Results 06/16/20 06/16/20 06/16/20 Range/Units 11:39 11:12 11:00 WBC (4.0-10.5) K/mm3 RBC (4.1-5.4) M/mm3 Hgb (12.0-16.0) gm/dl Hct (35-47) % MCV (78-100) fl MCH (26-32) pg MCHC (32-36) g/dl RDW (11.5-14.0) % Plt Count (150-450) K/mm3 MPV (7.5-11.0) fl Gran % (36.0-66.0) % Eos # (Auto) (0-0.5) Absolute Lymphs (auto) (1.0-4.6) Absolute Monos (auto) (0.0-1.3) Lymphocytes % (24.0-44.0) % Monocytes % (0.0-12.0) % Eosinophils % (0.00-5.0) % Basophils % (0.0-0.4) % Absolute Granulocytes (1.4-6.9) Basophils # (0-0.4) Sodium 138 (137-145) mmol/L Potassium 4.1 (3.5-5.1) mmol/L Chloride 104 (98-107) mmol/L Carbon Dioxide 26 (22-30) mmol/L Anion Gap 11.7 (5-15) MEQ/L BUN 9 (7-17) mg/dL Creatinine 0.73 (0.52-1.04) mg/dL Estimated GFR > 60.0 ML/MIN Glucose 100 (74-106) mg/dL Lactic Acid 1.8 (0.4-2.0) Calcium 9.6 (8.4-10.2) mg/dL Total Bilirubin 0.50 (0.2-1.3) mg/dL AST 18 (14-36) U/L ALT 10 (0-35) U/L Alkaline Phosphatase 53 (38-126) U/L Serum Total Protein 7.7 (6.3-8.2) g/dL Albumin 4.8 (3.5-5.0) g/dL Amylase 92 (30-110) U/L Lipase 87 (23-300) U/L Urine Color YELLOW (YELLOW) Urine Appearance CLEAR (CLEAR) Urine pH 7.0 (5-6) Ur Specific [place] 1.014 (1.005-1.025) Urine Protein NEGATIVE (Negative) Urine Ketones NEGATIVE (NEGATIVE) Urine Blood NEGATIVE (0-5) Lemuel/ul Urine Nitrite NEGATIVE (NEGATIVE) Urine Bilirubin NEGATIVE (NEGATIVE) Urine Urobilinogen NEGATIVE (0-1) mg/dL Ur Leukocyte Esterase NEGATIVE (NEGATIVE) Urine WBC (Auto) NONE (0-5) /HPF Urine RBC (Auto) NONE (0-2) /HPF U Epithel Cells (Auto) RARE (FEW) /HPF Urine Bacteria (Auto) NONE (NEGATIVE) /HPF Urine Mucus (Auto) SLIGHT (NEGATIVE) /HPF Urine Culture Reflexed NO (NO) Urine Glucose NEGATIVE (NEGATIVE) mg/dL 06/16/20 Range/Units 11:00 WBC 6.4 (4.0-10.5) K/mm3 RBC 5.41 H (4.1-5.4) M/mm3 Hgb 16.8 H (12.0-16.0) gm/dl Hct 50.5 H (35-47) % MCV 93.3 (78-100) fl MCH 31.1 (26-32) pg MCHC 33.3 (32-36) g/dl RDW 13.6 (11.5-14.0) % Plt Count 239 (150-450) K/mm3 MPV 9.7 (7.5-11.0) fl Gran % 65.2 (36.0-66.0) % Eos # (Auto) 0.27 (0-0.5) Absolute Lymphs (auto) 1.55 (1.0-4.6) Absolute Monos (auto) 0.36 (0.0-1.3) Lymphocytes % 24.4 (24.0-44.0) % Monocytes % 5.7 (0.0-12.0) % Eosinophils % 4.2 (0.00-5.0) % Basophils % 0.5 (0.0-0.4) % Absolute Granulocytes 4.15 (1.4-6.9) Basophils # 0.03 (0-0.4) Sodium (137-145) mmol/L Potassium (3.5-5.1) mmol/L Chloride (98-107) mmol/L Carbon Dioxide (22-30) mmol/L Anion Gap (5-15) MEQ/L BUN (7-17) mg/dL Creatinine (0.52-1.04) mg/dL Estimated GFR ML/MIN Glucose (74-106) mg/dL Lactic Acid (0.4-2.0) Calcium (8.4-10.2) mg/dL Total Bilirubin (0.2-1.3) mg/dL AST (14-36) U/L ALT (0-35) U/L Alkaline Phosphatase (38-126) U/L Serum Total Protein (6.3-8.2) g/dL Albumin (3.5-5.0) g/dL Amylase (30-110) U/L Lipase (23-300) U/L Urine Color (YELLOW) Urine Appearance (CLEAR) Urine pH (5-6) Ur Specific [place] (1.005-1.025) Urine Protein (Negative) Urine Ketones (NEGATIVE) Urine Blood (0-5) Lemuel/ul Urine Nitrite (NEGATIVE) Urine Bilirubin (NEGATIVE) Urine Urobilinogen (0-1) mg/dL Ur Leukocyte Esterase (NEGATIVE) Urine WBC (Auto) (0-5) /HPF Urine RBC (Auto) (0-2) /HPF U Epithel Cells (Auto) (FEW) /HPF Urine Bacteria (Auto) (NEGATIVE) /HPF Urine Mucus (Auto) (NEGATIVE) /HPF Urine Culture Reflexed (NO) Urine Glucose (NEGATIVE) mg/dL - Progress Progress: improved, pain not gone completely, re-examined Progress Note: 06/16/20 12:28 CAT scan of the abdomen and pelvis reveals no evidence of any acute intra- abdominal abnormality 06/16/20 12:47 I spent a good deal of time with the patient and her in trying to come up with pain medication control here in the emergency department. Ultimately, we all felt that Gilbert pain pill would best help her. I did tell her that she needs to follow-up with her primary care physician for further pain management issues and further work-up. Counseled pt/family regarding: lab results, diagnosis, need for follow-up, rad results - Departure Departure Disposition: Home Clinical Impression: Left flank pain, Left lower quadrant pain, Nausea Condition: Stable Critical Care Time: No Referrals: MARK HEDRICK [Primary Care Provider] - Additional Instructions: Drink plenty of clear liquids. Call your primary care doctor today to make arrangements for follow-up appointment. Take your medication as prescribed.
[2020-06-16] MEDS ORDERED: Sodium Chloride 0.9% 1000 ML 1,000 ML IV STA (11:00)
[2020-06-16] MEDS ORDERED: Zofran 4 MG/2 ML VIAL IV ONE (11:00)
[2020-06-16] MEDS ORDERED: TORAdol 30 mg Injection IV ONE (11:00)
[2020-06-16] MEDS ORDERED: Sodium Chloride 0.9% 1000 ML 0 ML ONE (11:05)
[2020-06-16] MEDS ORDERED: TORAdol 30 mg Injection ONE (11:05)
[2020-06-16] MEDS ORDERED: Zofran 4 MG/2 ML VIAL ONE (11:05)
[2020-06-16] MEDS ORDERED: TORAdol 30 mg Injection IM ONE (11:27)
[2020-06-16] MEDS ORDERED: Zofran 4 MG/2 ML VIAL IM ONE (11:27)
[2020-06-16 11:35] LABS: Absolute Neutrophil Ct (ANC) 4.15 (1.4-6.9); BASOPHIL % 0.5 % (0.0-0.4); Basophil (Absolute #) 0.03 (0-0.4); Eosinophil % 4.2 % (0.00-5.0); Eosinophil (Absolute #) 0.27 (0-0.5); Hematocrit 50.5 % (35-47); Hemoglobin 16.8 gm/dl (12.0-16.0); Lymphocyte (Absolute #) 1.55 (1.0-4.6); Lymphocytes % 24.4 % (24.0-44.0); Mean Cell Volume 93.3 fl (78-100); Mean Corpuscular Hemoglobin 31.1 pg (26-32); Mean Corpuscular Hgb Concent. 33.3 g/dl (32-36); Mean Platelet Volume 9.7 fl (7.5-11.0); Monocyte (Absolute #) 0.36 (0.0-1.3); Monocytes % 5.7 % (0.0-12.0); Neutrophil % 65.2 % (36.0-66.0); Platelet Count 239 K/mm3 (150-450); Red Blood Count 5.41 M/mm3 (4.1-5.4); Red Cell Distribution Width 13.6 % (11.5-14.0); White Blood Count 6.4 K/mm3 (4.0-10.5)
[2020-06-16 11:53] LABS: ALBUMIN 4.8 g/dL (3.5-5.0); ALKALINE PHOSPHATASE 53 U/L (38-126); AMYLASE 92 U/L (30-110); ANION GAP 11.7 MEQ/L (5-15); BLOOD UREA NITROGEN 9 mg/dL (7-17); CHLORIDE 104 mmol/L (98-107); Calcium 9.6 mg/dL (8.4-10.2); Carbon Dioxide 26 mmol/L (22-30); Creatinine 1 0.73 mg/dL (0.52-1.04); EST GLOMERULAR FILTRATION RATE > 60.0 ML/MIN; Glucose 100 mg/dL (74-106); LIPASE 87 U/L (23-300); Potassium 4.1 mmol/L (3.5-5.1); SGOT/AST 18 U/L (14-36); SGPT/ALT 10 U/L (0-35); SODIUM 138 mmol/L (137-145); Total Protein 7.7 g/dL (6.3-8.2)
[2020-06-16 11:57] LABS: Appearance CLEAR (CLEAR); Bilirubin NEGATIVE (NEGATIVE); Blood NEGATIVE Ery/ul (0-5); Epithelial Cells RARE /HPF (FEW); Glucose NEGATIVE (NEGATIVE); Ketones NEGATIVE (NEGATIVE); Leukocyte Esterase NEGATIVE (NEGATIVE); Mucus SLIGHT /HPF (NEGATIVE); Nitrite NEGATIVE (NEGATIVE); Protein,Urine Dip NEGATIVE (Negative); Specific Gravity 1.014 (1.005-1.025); Urobilinogen NEGATIVE mg/dL (0-1)
--- NOTE | 2020-06-16 12:12 | XRAY ---
Indication: Left flank pain and nausea. Multiple contiguous axial images obtained through the abdomen and pelvis without contrast as ordered. Comparison: March 27, 2018. Lung bases are clear. Heart is not enlarged. Noncontrasted stomach and bowel loops appear nonobstructed. Appendix not seen. There is mild fecal debris predominantly in the right hemicolon. No free fluid/air. Remaining liver, gallbladder, pancreas, spleen, adrenal glands, kidneys, ureters, bladder, uterus, and aorta appear unremarkable for noncontrast exam. Osseous structures intact. Impression: CT abdomen/pelvis without contrast exam is negative.
[2020-06-16] MEDS ORDERED: NORCO 7.5/325 MG TAB PO ONE (12:45)
[2020-06-16 12:54] VITALS: BP 98/66; PULSE 75; O2SAT 98
== END 2020-06-16 13:06 | disposition home or self-care (01) ==
LOC: ED 10:30
DX: R10.32 Left lower quadrant pain (principal); R11.0 Nausea
CPT/HCPCS: 36415; 74176; 80053; 81001; 82150; 83605; 83690; 85025; 96372; 99284; J1885; J2405; A9270-GY

== ENCOUNTER 2024-11-02 20:28 | Emergency (ER) | payer OTHER ==
[2024-11-02 20:53] VITALS: RESP 16; TEMP 96.7; O2SAT 100
[2024-11-02] MEDS ORDERED: Reglan 10 MG/2 ML ONE (21:07)
[2024-11-02] MEDS ORDERED: BENADRYL 50 MG/ML ONE (21:07)
[2024-11-02] MEDS ORDERED: TORAdol 30 mg Injection ONE (21:07)
[2024-11-02] MEDS ORDERED: TYLENOL 325 MG ONE (21:07)
[2024-11-02] MEDS: TORAdol 30 mg Injection IM ONE (21:09)
[2024-11-02] MEDS: TYLENOL 325 MG PO ONE (21:09)
[2024-11-02] MEDS: BENADRYL 50 MG/ML IM ONE (21:10)
[2024-11-02] MEDS: Reglan 10 MG/2 ML IM ONE (21:11)
--- NOTE | 2024-11-02 21:42 | ERPHSYRPT ---
- History of Present Illness Time Seen by Provider: 11/02/24 20:36 Source: patient Exam Limitations: no limitations Patient Subjective Stated Complaint: pt states she has had a migraine for the past 4 days Triage Nursing Assessment: pt ambulated into the er; pt is axo x4; c/o headache; pt states 10/10 pain to head; pupil 3 mm and PERRL; strong portia clinical asst and pushes; skin PDW; no respiratory distress present; vitals wnl Physician History: 44 years old female with history of Ayden-Danlos syndrome, migraines, seizure disorder, pituitary adenoma presented in the ER with headache for the last 4 days with progressive worsening. She has taken her routine migraine medication with no significant relief. Patient reports more frontal and on the left side where she usually has her headaches. Does not think this is the worst headache of her life. She had similar headaches in the past as well. Denies any numbness tingling or focal weakness. Denies any difficulty speech or visual changes. No fever or chills reported. Allergies/Adverse Reactions: hydromorphone HCl [From Dilaudid] Allergy (Verified 11/02/24 20:37) Shortness of Breath Latex, Natural Rubber Allergy (Verified 11/02/24 20:37) meperidine [From Demerol] Allergy (Verified 11/02/24 20:37) Swelling of Tongue and Lips Penicillins Allergy (Verified 11/02/24 20:37) Home Medications: Gabapentin [Neurontin] 600 mg PO HS 03/27/19 [History] Meloxicam 7.5 mg PO BID 11/02/24 [History] Sumatriptan Succinate [Imitrex] 25 mg PO DAILY PRN 11/02/24 [History] Hx Tetanus, Diphtheria Vaccination/Date Given: Yes (2015) Hx Influenza Vaccination/Date Given: No Hx Pneumococcal Vaccination/Date Given: No Travel Risk - International Travel Have you traveled outside of the country in past 3 weeks: No - Emerging Infectious Disease Are you exhibiting symptoms associated with any current EIDs: Yes Symptoms: Headaches/Body Aches/ - Review of Systems Constitutional: No Symptoms Eyes: No Symptoms Ears, Nose, & Throat: No Symptoms Respiratory: No Symptoms Cardiac: No Symptoms Abdominal/Gastrointestinal: Nausea Genitourinary Symptoms: No Symptoms Musculoskeletal: No Symptoms Neurological: Headache Psychological: No Symptoms Endocrine: No Symptoms Hematologic/Lymphatic: No Symptoms - Past Medical History Pertinent Past Medical History: Yes Neurological History: Migraines, Peripheral Neuropathy, Seizures ENT History: No Pertinent History Cardiac History: No Pertinent History Respiratory History: Asthma Endocrine Medical History: Other Musculoskeletal History: Fibromyalgia, Other GI Medical History: No Pertinent History History: No Pertinent History Psycho-Social History: Depression Female Reproductive Disorders: Fibroids Other Medical History: PCOS, insuline resistant, osteopenia, hysterectomy - Past Surgical History Past Surgical History: Yes Neuro Surgical History: No Pertinent History Cardiac: No Pertinent History Respiratory: No Pertinent History Gastrointestinal: No Pertinent History Genitourinary: No Pertinent History Musculoskeletal: No Pertinent History Female Surgical History: Hysterectomy, Section, Tubal Ligation Other Surgical History: egd 2014, x 2 and tubal ligation. pt and family state difficult to awaken from general anesthesia - Female History Hx Last Menstrual Period: 2015 Hx Now: No - Social History Smoking Status: Light tobacco smoker How long have you smoked: 15 years Exposure to second hand smoke: No Drug Use: none - Social Determinants of Health Will the patient participate in the screening: Yes Do you worry about a steady place to live?: No Do you have any problems with any of the following?: No known problems In the past 12 months,have you had to go without utilities?: No Transportation Issues: No Has anyone in your support network made you feel unsafe?: No Have you or anyone in your house had to go w/o enough food: No - Nursing Vital Signs Nursing Vital Signs: Initial Vital Signs Temperature 96.7 F 11/02/24 20:40 Pulse Rate 84 11/02/24 20:40 Respiratory Rate 16 11/02/24 20:40 Blood Pressure 143/81 11/02/24 20:40 O2 Sat by Pulse Oximetry 100 11/02/24 20:40 Pain Scale Pain Intensity 4 - Physical Exam General Appearance: no apparent distress, alert Eye Exam: PERRL/EOMI Ears, Nose, Throat Exam: normal ENT inspection, TMs normal, moist mucous memb ranes Neck Exam: normal inspection, non-tender, supple, carotid bruit Respiratory Exam: normal breath sounds, lungs clear Cardiovascular Exam: regular rate/rhythm, normal heart sounds Gastrointestinal/Abdominal Exam: soft, No tenderness Extremity Exam: normal inspection Mental Status Exam: alert, 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, 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 Exam: normal hearing, normal speech, PERRL Coordination/Gait Exam: normal finger to nose, normal cerebellar function, negative Romberg's sign Motor/Sensory Exam: no motor deficit, no sensory deficit, no pronator drift, negative Babinski's sign DTR Exam: bicep (R): 2+, bicep (L): 2+, knee (R): 2+, knee (L): 2+ Skin Exam: normal color SpO2 Interpretation: normal SpO2: 100 O2 Delivery: Room Air Ordered Tests: Medication Summary Discontinued Medications Generic Name Dose Route Start Last Admin Trade Name Mary PRN Reason Stop Dose Admin Acetaminophen 975 mg 11/02/24 21:04 11/02/24 21:09 Acetaminophen 325 Mg Tablet PO 11/02/24 21:05 975 mg STAT ONE Administration Acetaminophen Confirm 11/02/24 21:07 Acetaminophen 325 Mg Tablet Administered 11/02/24 21:08 Dose 975 mg .ROUTE .STK-MED ONE Diphenhydramine HCl 50 mg 11/02/24 21:04 11/02/24 21:10 Diphenhydramine Hcl 50 Mg/Ml Vial IM 11/02/24 21:05 50 mg STAT ONE Administration Diphenhydramine HCl Confirm 11/02/24 21:07 Diphenhydramine Hcl 50 Mg/Ml Vial Administered 11/02/24 21:08 Dose 50 mg .ROUTE .STK-MED ONE Ketorolac Tromethamine 30 mg 11/02/24 21:04 11/02/24 21:09 Ketorolac Tromethamine 30 Mg/Ml Inj IM 11/02/24 21:05 30 mg STAT ONE Administration Ketorolac Tromethamine Confirm 11/02/24 21:07 Ketorolac Tromethamine 30 Mg/Ml Inj Administered 11/02/24 21:08 Dose 30 mg .ROUTE .STK-MED ONE Metoclopramide HCl 10 mg 11/02/24 21:04 11/02/24 21:11 Metoclopramide Hcl 10 Mg/2 Ml Vial IM 11/02/24 21:05 10 mg STAT ONE Administration Metoclopramide HCl Confirm 11/02/24 21:07 Metoclopramide Hcl 10 Mg/2 Ml Vial Administered 11/02/24 21:08 Dose 10 mg .ROUTE .STK-MED ONE - Progress Progress: improved, re-examined Air Movement: good Progress Note: 11/02/24 22:40 44-year-old with history of migraines evaluated in the ER for headache for the last 4 days. She has nonfocal neuroexam. Had similar headaches in the past, is not the worst headache of her life, do not think she needs imaging. She is given symptomatic treatment with Toradol Reglan and Benadryl along with Tylenol, on reevaluation her headache is much improved. She is advised to follow-up with her primary care and neurology for reevaluation about worsening of her migraines. Discussed signs symptoms of worsening needing return to ER which she seems understanding. Stable for discharge. Complexity of problem addressed: Moderate acute Complexity of data analyzed/reviewed: Minimal Risk of complication/morbidity/mortality: Low risk Blood Culture(s) Obtained: No Antibiotics given: No Counseled pt/family regarding: diagnosis, need for follow-up Medical Desision Making - Diagnostic Testing Diagnostic test were ordered, analyzed, and reviewed by me: No - Risk of complications The pt has a mod risk of morbidity or mortality based on: Need for prescription drug management - Departure Departure Disposition: Home Clinical Impression: Migraine Qualifiers: Migraine type: unspecified Status migrainosus presence: without status migrainosus Intractability: not intractable Qualified Code(s): G43.909 - Migraine, unspecified, not intractable, without status migrainosus Condition: Stable Critical Care Time: No Referrals: KARINA IRIZARRY NP [Primary Care Provider] - Follow up with PCP 1 day Instructions: Headache, Adult (DC) Additional Instructions: Follow-up with your primary care and neurology for reevaluation. Take Tylenol/ibuprofen as needed. Return to ER for intractable headache, visual changes, difficulty speech, numbness tingling focal weakness etc.
[2024-11-02 22:36] VITALS: BP 107/70; PULSE 60
== END 2024-11-02 22:36 | disposition home or self-care (01) ==
LOC: ED 20:28
DX: G43.909 Migraine, unspecified, not intractable, without status migrainosus (principal); Z79.899 Other long term (current) drug therapy; Z72.0 Tobacco use
CPT/HCPCS: 96372; 99283; 99284; J1200; J1885; A9270-GY